=== PATIENT | male | born 1965 | race African-American/Black ===

== ENCOUNTER 2017-02-18 09:09 | Day surgery (SDC) | payer SELFPAY ==
[2017-02-18 10:15] LABS: PROTHROMBIN TIME 12.8 SEC (11.4-15.4)
[2017-02-18 10:16] LABS: PARTIAL THROMBOPLASTIN TIME 28.2 SEC (23.5-35.8)
[2017-02-18 10:20] LABS: HEMATOCRIT 38.4 % (37.9-51.0); HEMOGLOBIN 12.8 g/dL (13.5-17.0); MEAN CORPUSCULAR HEMOGLOBIN 26.8 pg (27.0-33.4); MEAN CORPUSCULAR HGB CONC 33.2 g/dL (32.0-36.0); MEAN CORPUSCULAR VOLUME 81 fl (80-97); RED BLOOD COUNT 4.77 10^6/uL (4.35-5.55); RED CELL DISTRIBUTION WIDTH 15.6 % (11.5-14.0); WHITE BLOOD COUNT 10.6 10^3/uL (4.0-10.5)
[2017-02-18 10:29] LABS: BLOOD UREA NITROGEN 15 mg/dL (7-20)
[2017-02-18] MEDS ORDERED: MIDAZOLAM 2 MG/2 ML INJ ONE (11:10)
[2017-02-18] MEDS ORDERED: FENTANYL CITRATE INJ/PF 100 MCG/2 ML AMPUL ONE (11:11)
--- NOTE | 2017-02-18 13:52 | RADIOLOGY REPORT (SQ) ---
EXAM DESCRIPTION: CT NEEDLE PLACEMENT; CT BIOPSY LIVER COMPLETED DATE/TIME: 02/18/2017 11:44 am; 02/18/2017 11:45 am REASON FOR STUDY: OTHER SPECIFIED DISEASE OF LIVER, LIVER BX; OTHER SPECIFIED DISEASE OF LIVER R93.3 ABNORMAL FINDINGS ON DX IMAGING OF PRT DIGESTIVE TRACT K76.89 OTHER SPECIFIED DISEASES OF LIVER COMPARISON: CT abdomen pelvis 01/30/2017 TECHNIQUE: CT guided right lobe liver biopsy with CT fluoroscopy and conscious sedation. RADIATION DOSE: 40 mGy. LIMITATIONS: None. FINDINGS: Procedure was discussed with the patient and the patient agreed to the procedure. CT scan gino was performed to localize the approach to the right lobe liver mass for biopsy. IV sedation was administered and physician direction by the registered nurse using 1 milligrams of Ve rsed and 25 micrograms of fentanyl. Physiologic monitoring was provided before, during, and after sed ation. The total sedation time was 30 minutes. Documentation face to face time, the performing proceduralist, spent monitoring the patient: 10minute s. After sterile skin prep and local lidocaine for skin and deep tissue anesthesia, a coaxial 18 gauge n eedle system was used to obtain 4 cores of liver tissue from the large right lobe liver mass, which w ere submitted to the lab in formalin. The biopsy tract was embolized with a Gelfoam plug. No immedi ate complications. Pathology is pending at the time of dictation. All CT scanners at this facility use dose modulation, iterative reconstruction, and/or weight based d osing when appropriate to reduce radiation dose to as low as reasonably achievable (ALARA). [facility]: Dose Right [facility]: CareDose [facility]: Dose Right [facility]: Teradose 4D [facility]: [employer] IMPRESSION: CT GUIDED LIVER BIOPSY. PATHOLOGY PENDING COMMENT: Patient medication list reviewed:Yes- Quality ID# [id number]:Eligible professional attests to docu menting in the medical record they obtained, updated, or reviewed the patient's current medications.. Quality ID [id number]: Final reports for procedures using fluoroscopy that document radiation exposure tanvir isabelle, or exposure time and number of fluorographic images (if radiation exposure indices are not avail able) TECHNICAL DOCUMENTATION: JOB ID: [id number] Quality ID # [id number]: Final reports with documentation of one or more dose reduction techniques (e.g., Au tomated exposure control, adjustment of the mA and/or kV according to patient size, use of iterative reconstruction technique) 2010 [employer]- All Rights Reserved
--- NOTE | 2017-02-18 13:52 | RADIOLOGY REPORT (SQ) ---
EXAM DESCRIPTION: CT NEEDLE PLACEMENT; CT BIOPSY LIVER COMPLETED DATE/TIME: 02/18/2017 11:44 am; 02/18/2017 11:45 am REASON FOR STUDY: OTHER SPECIFIED DISEASE OF LIVER, LIVER BX; OTHER SPECIFIED DISEASE OF LIVER R93.3 ABNORMAL FINDINGS ON DX IMAGING OF PRT DIGESTIVE TRACT K76.89 OTHER SPECIFIED DISEASES OF LIVER COMPARISON: CT abdomen pelvis 01/30/2017 TECHNIQUE: CT guided right lobe liver biopsy with CT fluoroscopy and conscious sedation. RADIATION DOSE: 40 mGy. LIMITATIONS: None. FINDINGS: Procedure was discussed with the patient and the patient agreed to the procedure. CT scan gino was performed to localize the approach to the right lobe liver mass for biopsy. IV sedation was administered and physician direction by the registered nurse using 1 milligrams of Ve rsed and 25 micrograms of fentanyl. Physiologic monitoring was provided before, during, and after sed ation. The total sedation time was 30 minutes. Documentation face to face time, the performing proceduralist, spent monitoring the patient: 10minute s. After sterile skin prep and local lidocaine for skin and deep tissue anesthesia, a coaxial 18 gauge n eedle system was used to obtain 4 cores of liver tissue from the large right lobe liver mass, which w ere submitted to the lab in formalin. The biopsy tract was embolized with a Gelfoam plug. No immedi ate complications. Pathology is pending at the time of dictation. All CT scanners at this facility use dose modulation, iterative reconstruction, and/or weight based d osing when appropriate to reduce radiation dose to as low as reasonably achievable (ALARA). [facility]: Dose Right [facility]: CareDose [facility]: Dose Right [facility]: Teradose 4D [facility]: [employer] IMPRESSION: CT GUIDED LIVER BIOPSY. PATHOLOGY PENDING COMMENT: Patient medication list reviewed:Yes- Quality ID# [id number]:Eligible professional attests to docu menting in the medical record they obtained, updated, or reviewed the patient's current medications.. Quality ID 145: Final reports for procedures using fluoroscopy that document radiation exposure tanvir isabelle, or exposure time and number of fluorographic images (if radiation exposure indices are not avail able) TECHNICAL DOCUMENTATION: JOB ID: [id number] Quality ID # [id number]: Final reports with documentation of one or more dose reduction techniques (e.g., Au tomated exposure control, adjustment of the mA and/or kV according to patient size, use of iterative reconstruction technique) 2010 [employer]- All Rights Reserved
[2017-02-18 14:22] VITALS: BP 119/78
== END 2017-02-18 14:20 | disposition home or self-care (01) ==
LOC: RAD 09:09
PROVIDERS: ATTEND Internal Medicine Hematology & Oncology
PROC: 0FB13ZX Excision of Right Lobe Liver, Percutaneous Approach, Diagnostic (ICD-10-PCS; principal; 2017-02-18)
DX: C78.7 Secondary malignant neoplasm of liver and intrahepatic bile duct (principal); R93.3 Abnormal findings on diagnostic imaging of other parts of digestive tract; K76.89 Other specified diseases of liver; Z85.9 Personal history of malignant neoplasm, unspecified
CPT/HCPCS: 36415; 84520; 82565; 85027; 85610; 85730; 88342 ×2; 88341 ×2; 88305 ×2; 77012; 47000; J2250; J3010

== ENCOUNTER 2017-02-28 13:42 | Emergency (ER) | payer SELFPAY ==
[2017-02-28] MEDS ORDERED: NORMAL SALINE 500 ML IV ONE (15:45)
[2017-02-28] MEDS ORDERED: HYDROMORPHONE HCL INJ/PF 2 MG/ML AMPULE IV ONE (15:46)
[2017-02-28] MEDS ORDERED: ONDANSETRON HCL INJ/PF 4 MG/2 ML SDV IV ONE (15:46)
--- NOTE | 2017-02-28 15:50 | ER Document Report ---
ED General - General Chief Complaint: Abdominal Pain Stated Complaint: ABDOMINAL PAIN Time Seen by Provider: 02/28/17 15:31 Mode of Arrival: Ambulatory Information source: Patient, Relative Notes: Patient is a 51-year-old black male comes emergency room with his spouse stating that they have been sent here by Dr. Robbins of hematology oncology. Patient was recently diagnosed with liver cancer or metastatic disease to the liver. He has been having abdominal pain discomfort and Dr. Robbins placed him on OxyContin 15 mg and patient took 1 dose and felt good that night in the morning he woke up and vomited up anything he is trying to eat or drink. She was afraid the patient may have encountered a bowel obstruction. Patient states that he has had a normal bowel movement in the last 24 hours last one was approximately 45 minutes prior to arrival. Most of his pain seems to do well in the left upper quadrant area. TRAVEL OUTSIDE OF THE [place] IN LAST 30 DAYS: No - HPI Patient complains to provider of: Abdominal pain with vomiting Onset: Other - Worse over the past 2 days. Onset/Duration: Gradual, Persistent Quality of pain: Achy, Cramping Severity: Moderate Pain Level: 3 Associated symptoms: Diarrhea, Nausea, Vomiting Exacerbated by: Food Relieved by: Denies Similar symptoms previously: Yes Recently seen / treated by doctor: Yes - Related Data Allergies/Adverse Reactions: grass pollen Allergy (Verified 02/28/17 13:46) Past Medical History - General Information source: Patient, Relative - Social History Smoking Status: Never Smoker Cigarette use (# per day): No Chew tobacco use (# tins/day): No Frequency of alcohol use: None Drug Abuse: None Lives with: Family, Spouse/Significant other Family History: Reviewed & Not Pertinent Patient has suicidal ideation: No Patient has homicidal ideation: No - Past Medical History Cardiac Medical History: Denies: Hx Coronary Artery Disease, Hx Heart Attack, Hx Hypertension Pulmonary Medical History: Denies: Hx Asthma, Hx Bronchitis, Hx COPD, Hx Pneumonia Neurological Medical History: Denies: Hx Cerebrovascular Accident, Hx Seizures Renal/ Medical History: Denies: Hx Peritoneal Dialysis Musculoskeltal Medical History: Denies Hx Arthritis - Immunizations Hx Diphtheria, Pertussis, Tetanus Vaccination: No - Patient denies Review of Systems - Review of Systems Constitutional: No symptoms reported EENT: No symptoms reported Cardiovascular: No symptoms reported Respiratory: No symptoms reported Gastrointestinal: No symptoms reported, Abdomen distended, Abdominal pain, Diarrhea, Nausea, Vomiting Genitourinary: No symptoms reported Male Genitourinary: No symptoms reported Musculoskeletal: No symptoms reported Skin: No symptoms reported Hematologic/Lymphatic: No symptoms reported Neurological/Psychological: No symptoms reported -: Yes All other systems reviewed and negative Physical Exam - Vital signs Vitals: Temp Pulse Resp BP Pulse Ox 98.3 F 92 16 117/77 97 02/28/17 13:48 02/28/17 13:48 02/28/17 13:48 02/28/17 13:48 02/28/17 13:48 Interpretation: Normal - General General appearance: Alert, Other - Obvious discomfort. In distress: Moderate - HEENT Head: Normocephalic, Atraumatic Mouth/Lips: Normal Mucous membranes: Dry Pharynx: Normal - Respiratory Respiratory status: No respiratory distress Chest status: Nontender Breath sounds: Decreased air movement. No: Normal, Nonproductive cough, Productive cough, Rales, Rhonchi, Stridor, Wheezing, Other Chest palpation: Normal - Cardiovascular Rhythm: Regular Heart sounds: Normal auscultation Murmur: No - Abdominal Distension: Distended Bowel sounds: Hypoactive Tenderness: Tender. No: Nontender, McBurney's point, Ware's sign, Guarding, Rebound, Other Organomegaly: No organomegaly, Hepatomegaly, Splenomegaly - Neurological Neuro grossly intact: Yes Cognition: Normal Orientation: AAOx4, Disoriented to events Chidi Coma Scale Eye Opening: Spontaneous Chidi Coma Scale Verbal: Oriented Chidi Coma Scale Motor: Obeys Commands Chidi Coma Scale Total: 15 Speech: Normal Course - Vital Signs Vital signs: Temp Pulse Resp BP Pulse Ox 98.3 F 92 16 117/77 97 02/28/17 13:48 02/28/17 13:48 02/28/17 13:48 02/28/17 13:48 02/28/17 13:48 - Laboratory Result Diagrams: 02/28/17 16:00 02/28/17 16:00 Laboratory results interpreted by me: 02/28/17 02/28/17 16:00 16:00 WBC 12.2 H Hgb 12.8 L MCH 26.6 L RDW 15.5 H Absolute Neutrophils 8.6 H Sodium 135.7 L Chloride 96 L Glucose 71 L Total Bilirubin 1.9 H Direct Bilirubin 1.3 H AST 118 H ALT 108 H Alkaline Phosphatase 456 H - Diagnostic Test Radiology reviewed: Reports reviewed - CT of the abdomen and pelvis with contrast IV only shows a impression of liver is enlarged and permeated with multiple large metastatic lesions likely secondary to a 6 cm mass in the colon at the splenic flexure. There does not appear to be significant evidence of a bowel obstruction. - Transfer of Care Notes: 02/28/17 19:21 I have discussed the case with at this present time she wants me to go ahead and send patient home place him on Dilaudid 2 mg p.o. 3 times daily as needed for pain along with some promethazine and put him on Senokot. I have also suggested the patient to take MiraLAX. I explained to him how bad constipation can be and that he needs to be very alert as to his bowel movements. He is to contact Dr. Robbins"s office Friday for further intervention. Patient is also been informed that if anything changes over the weekend if he should become obstructed or should he have increasing amount of pain or discomfort he is to return to ER for a recheck. Discharge - Discharge Clinical Impression: Abdominal pain Qualifiers: Abdominal location: left upper quadrant Qualified Code(s): R10.12 - Left upper quadrant pain Colon cancer Qualifiers: Colon location: unspecified part of colon Qualified Code(s): C18.9 - Malignant neoplasm of colon, unspecified Condition: Good Disposition: HOME, SELF-CARE Instructions: Abdominal Pain ([facility]), Oral Narcotic Medication ([facility]), Evaluation of Upper Abdominal Pain ([facility]) Additional Instructions: As we have discussed home and rest. Let us try the medication that we have also talked about his call Dilaudid. Dr. Robbins would like us to try this along with some Phenergan and she also wants you to start a Senokot bowel prep. You can get this [id number]. Follow directions on it as well. Also highly suggested using MiraLAX I again 75 mg once a day with fluids. You can get this [id number] as well. As we have discussed if pain increases you are unable to keep fluids down or you have any concerns return to ER over the weekend. Follow-up with Dr. Robbins office on Friday contact them for further instructions. Prescriptions: Hydromorphone HCl [Dilaudid 2 mg Tablet] 2 mg PO Q4HP PRN #30 tablet PRN Reason: Promethazine HCl [Phenergan 25 mg Tablet] 25 mg PO Q4HP PRN #20 tablet PRN Reason:
[2017-02-28 16:17] LABS: ABSOLUTE BASOPHILS # (AUTO) 0.1 10^3/uL (0.0-0.2); ABSOLUTE EOSINOPHILS # (AUTO) 0.2 10^3/uL (0.0-0.6); ABSOLUTE MONOCYTES (AUTO) 1.4 10^3/uL (0.1-1.4); ABSOLUTE NEUT (AUTO) 8.6 10^3/uL (1.7-8.2); BASOPHILS % (AUTO) 0.7 % (0-2); EOSINOPHILS % (AUTO) 1.6 % (0-6); HEMOGLOBIN 12.8 g/dL (13.5-17.0); HGB HCT DIFFERENCE -0.6; LYMPHOCYTES % (AUTO) 16.1 % (13-45); MEAN CORPUSCULAR HEMOGLOBIN 26.6 pg (27.0-33.4); MEAN CORPUSCULAR HGB CONC 32.9 g/dL (32.0-36.0); MEAN CORPUSCULAR VOLUME 81 fl (80-97); MONOCYTES % (AUTO) 11.3 % (3-13); RED BLOOD COUNT 4.82 10^6/uL (4.35-5.55); RED CELL DISTRIBUTION WIDTH 15.5 % (11.5-14.0); SEGMENTED NEUTROPHILS % (AUTO) 70.3 % (42-78); WHITE BLOOD COUNT 12.2 10^3/uL (4.0-10.5)
[2017-02-28 16:32] LABS: ALANINE AMINOTRANSFERASE 108 U/L (21-72); ALBUMIN 3.6 g/dL (3.5-5.0); ALKALINE PHOSPHATASE 456 U/L (38-126); ANION GAP 17 (5-19); ASPARTATE AMINO TRANSFERASE 118 U/L (17-59); BILIRUBIN,DIRECT 1.3 mg/dL (0.0-0.4); BILIRUBIN,TOTAL 1.9 mg/dL (0.2-1.3); BLOOD UREA NITROGEN 12 mg/dL (7-20); CALCIUM 9.5 mg/dL (8.4-10.2); CARBON DIOXIDE 23 mmol/L (22-30); CHLORIDE 96 mmol/L (98-107); CREATININE RESULT 0.53 mg/dL (0.52-1.25); GLUCOSE 71 mg/dL (75-110); LIPASE 51.8 U/L (23-300); POTASSIUM 4.4 mmol/L (3.6-5.0); SODIUM 135.7 mmol/L (137-145); TOTAL PROTEIN 6.9 g/dL (6.3-8.2)
--- NOTE | 2017-02-28 18:25 | RADIOLOGY REPORT (SQ) ---
EXAM DESCRIPTION: CT ABD/PELVIS WITH IV ONLY COMPLETED DATE/TIME: 02/28/2017 6:07 pm REASON FOR STUDY: ? obstruction COMPARISON: 01/30/2017 TECHNIQUE: CT scan of the abdomen and pelvis performed using helical scanning technique with dynamic intravenous contrast injection. No oral contrast. Images reviewed with lung, soft tissue, and bone windows. Reconstructed coronal and sagittal MPR images reviewed. Delayed images for evaluation of the urinary system also acquired. All images stored on PACS. All CT scanners at this facility use dose modulation, iterative reconstruction, and/or weight based d osing when appropriate to reduce radiation dose to as low as reasonably achievable (ALARA). [facility]: Dose Right [facility]: CareDose [facility]: Dose Right [facility]: Teradose 4D [facility]: PressBaby CONTRAST TYPE AND DOSE: 100 cc Isovue 370- low osmolar. RENAL FUNCTION: Creatinine 0.5 BUN 12 RADIATION DOSE: Total exam DLP 1338 mGy cm. LIMITATIONS: None. FINDINGS: LOWER CHEST: No significant findings. No nodules or infiltrates. LIVER: Multiple large hepatic masses are once again seen consistent with extensive metastatic disease . SPLEEN: Normal size. No focal lesions. PANCREAS: No masses. No significant calcifications. No adjacent inflammation or peripancreatic fluid collections. Pancreatic duct not dilated. GALLBLADDER: No identified stones by CT criteria. No inflammatory changes to suggest cholecystitis. ADRENAL GLANDS: No significant masses or asymmetry. RIGHT KIDNEY AND URETER: No solid masses. No significant calcifications. No hydronephrosis or hyd roureter. LEFT KIDNEY AND URETER: No solid masses. No significant calcifications. No hydronephrosis or hydr oureter. AORTA AND VESSELS: No aneurysm. No dissection. Renal arteries, SMA, celiac without stenosis. RETROPERITONEUM: No retroperitoneal adenopathy, hemorrhage or masses. BOWEL AND PERITONEAL CAVITY: Once again there a 6 cm mass near the splenic flexure with slight mesent roe nodularity. No obstruction is appreciated. APPENDIX: Normal. PELVIS: No mass. No free fluid. Normal bladder. ABDOMINAL WALL: No masses. No hernias. BONES: No significant or acute findings. OTHER: No other significant finding. IMPRESSION: The liver is enlarged and permeated with multiple large metastatic lesions, likely secon cortez to a 6 cm mass in the colon at the splenic flexure. There does not appear to be significant rosalie dence of bowel obstruction. TECHNICAL DOCUMENTATION: JOB ID: [id number] Quality ID # [id number]: Final reports with documentation of one or more dose reduction techniques (e.g., Au tomated exposure control, adjustment of the mA and/or kV according to patient size, use of iterative reconstruction technique) 2010 [employer]- All Rights Reserved
[2017-02-28 19:51] VITALS: BP 117/71
== END 2017-02-28 19:48 | disposition home or self-care (01) ==
LOC: ER 13:42
DX: C22.8 Malignant neoplasm of liver, primary, unspecified as to type (principal); R10.12 Left upper quadrant pain
CPT/HCPCS: 99284; 96361; 96374; 96375; 36415; 83690; 85025; 80053; 74177; J1170; J2405; J7040

== ENCOUNTER 2017-03-07 15:06 | Emergency (ER) | payer SELFPAY ==
--- NOTE | 2017-03-07 16:08 | ER Document Report ---
ED Medical Screen (RME) - General Chief Complaint: Ankle Swelling Stated Complaint: FOOT PAIN Time Seen by Provider: 03/07/17 15:57 Notes: 51-year-old male past medical history recently diagnosed colon cancer here with complaints of bilateral leg swelling ongoing for the past few days. He states he has had this once before approximately 9 months ago but it resolved on its own without the use of any medications. He has not had any chest pain or shortness of breath. He has been urinating per usual without changes. He has no prior history of DVT. He is supposed to start his chemotherapy in the near future. EXAM Bilateral lower extremity pitting edema 2+ to the level of mid shins No rales on pulmonary exam TRAVEL OUTSIDE OF THE [place] IN LAST 30 DAYS: No - Related Data Allergies/Adverse Reactions: grass pollen Allergy (Verified 03/07/17 15:08) Past Medical History - Social History Chew tobacco use (# tins/day): No Frequency of alcohol use: None Drug Abuse: None - Past Medical History Cardiac Medical History: Denies: Hx Coronary Artery Disease, Hx Heart Attack, Hx Hypertension Pulmonary Medical History: Denies: Hx Asthma, Hx Bronchitis, Hx COPD, Hx Pneumonia Neurological Medical History: Denies: Hx Cerebrovascular Accident, Hx Seizures Renal/ Medical History: Denies: Hx Peritoneal Dialysis Musculoskeltal Medical History: Denies Hx Arthritis - Immunizations Hx Diphtheria, Pertussis, Tetanus Vaccination: No - Patient denies History of Influenza Vaccine for 12/2016 - 05/2017 Season: No Physical Exam - Vital signs Vitals: Temp Pulse Resp BP Pulse Ox 98.5 F 94 16 118/81 97 03/07/17 15:27 03/07/17 15:27 03/07/17 15:27 03/07/17 15:27 03/07/17 15:27 Course - Vital Signs Vital signs: Temp Pulse Resp BP Pulse Ox 98.5 F 94 16 118/81 97 03/07/17 15:27 03/07/17 15:27 03/07/17 15:27 03/07/17 15:27 03/07/17 15:27
--- NOTE | 2017-03-07 17:38 | RADIOLOGY REPORT (SQ) ---
EXAM DESCRIPTION: VENOUS BILATERAL LOWER COMPLETED DATE/TIME: 03/07/2017 5:29 pm REASON FOR STUDY: r/o DVT for b/l leg swelling COMPARISON: None. TECHNIQUE: Dynamic and static shah scale and color images acquired of both lower extremity venous sy stems. Selected spectral images acquired with additional compression and augmentation maneuvers. Imag es stored on PACS. LIMITATIONS: None. FINDINGS: RIGHT LEG COMMON FEMORAL AND FEMORAL: Normal phasicity, compression and augmentation. No visualized echogenic m aterial on shah scale. No defects on color images. POPLITEAL: Normal compression and augmentation. No visualized echogenic material on shah scale. No de fects on color images. CALF VESSELS: Normal compression and augmentation. No visualized echogenic material on shah scale. No defects on color image. GSV AND SSV: Normal compression. No visualized echogenic material on shah scale. No defects on color images. ANY DEEP VENOUS INSUFFICIENCY: Not evaluated. ANY EVIDENCE OF POPLITEAL CYST: No. OTHER: No other significant finding. LEFT LEG COMMON FEMORAL AND FEMORAL: Normal phasicity, compression and augmentation. No visualized echogenic m aterial on shah scale. No defects on color images. POPLITEAL: Normal compression and augmentation. No visualized echogenic material on shah scale. No de fects on color images. CALF VESSELS: Normal compression and augmentation. No visualized echogenic material on shah scale. No defects on color images. GSV AND SSV: Normal compression. No visualized echogenic material on shah scale. No defects on color images. ANY DEEP VENOUS INSUFFICIENCY: Not evaluated. ANY EVIDENCE POPLITEAL CYST: No. OTHER: No other significant finding. IMPRESSION: NO EVIDENCE DVT OR SVT IN EITHER LEG. TECHNICAL DOCUMENTATION: JOB ID: [id number] [employer]- All Rights Reserved
[2017-03-07 18:35] LABS: ABSOLUTE BASOPHILS # (AUTO) 0.1 10^3/uL (0.0-0.2); ABSOLUTE EOSINOPHILS # (AUTO) 0.4 10^3/uL (0.0-0.6); ABSOLUTE MONOCYTES (AUTO) 1.3 10^3/uL (0.1-1.4); ABSOLUTE NEUT (AUTO) 8.7 10^3/uL (1.7-8.2); BASOPHILS % (AUTO) 1.1 % (0-2); EOSINOPHILS % (AUTO) 2.8 % (0-6); HEMATOCRIT 36.7 % (37.9-51.0); HEMOGLOBIN 12.1 g/dL (13.5-17.0); HGB HCT DIFFERENCE -0.4; MEAN CORPUSCULAR HEMOGLOBIN 26.9 pg (27.0-33.4); MEAN CORPUSCULAR HGB CONC 33.1 g/dL (32.0-36.0); MEAN CORPUSCULAR VOLUME 81 fl (80-97); MONOCYTES % (AUTO) 10.2 % (3-13); RED BLOOD COUNT 4.51 10^6/uL (4.35-5.55); RED CELL DISTRIBUTION WIDTH 15.8 % (11.5-14.0); SEGMENTED NEUTROPHILS % (AUTO) 69.9 % (42-78); WHITE BLOOD COUNT 12.4 10^3/uL (4.0-10.5)
[2017-03-07 18:57] LABS: ANION GAP 19 (5-19); BLOOD UREA NITROGEN 11 mg/dL (7-20); CALCIUM 9.3 mg/dL (8.4-10.2); CARBON DIOXIDE 21 mmol/L (22-30); CHLORIDE 99 mmol/L (98-107); CREATININE RESULT 0.61 mg/dL (0.52-1.25); GLUCOSE 80 mg/dL (75-110); POTASSIUM 4.2 mmol/L (3.6-5.0); SODIUM 138.6 mmol/L (137-145)
--- NOTE | 2017-03-07 20:46 | ER Document Report ---
ED General - General Chief Complaint: Ankle Swelling Stated Complaint: FOOT PAIN Time Seen by Provider: 03/07/17 15:57 Mode of Arrival: Ambulatory Information source: Patient Notes: This is a 51-year-old man with recently diagnosed metastatic colon cancer comes in with lower extremity swelling. He denies chest pain or shortness of breath. TRAVEL OUTSIDE OF THE [place] IN LAST 30 DAYS: No - HPI Onset: Last week Onset/Duration: Gradual Quality of pain: No pain Severity: None Pain Level: Denies Associated symptoms: denies: Chest pain, Fever, Shortness of breath Exacerbated by: Denies Relieved by: Denies Similar symptoms previously: No Recently seen / treated by doctor: Yes - Related Data Allergies/Adverse Reactions: grass pollen Allergy (Verified 03/07/17 15:08) Home Medications: Current Home Medications Hydromorphone HCl [Hydromorphone HCl] 2 mg PO Q4H PRN 03/07/17 [History] Promethazine HCl 25 mg PO Q4H PRN 03/07/17 [History] Past Medical History - General Information source: Patient - Social History Smoking Status: Never Smoker Cigarette use (# per day): No Chew tobacco use (# tins/day): No Frequency of alcohol use: None Drug Abuse: None Lives with: Spouse/Significant other Family History: Reviewed & Not Pertinent Patient has suicidal ideation: No Patient has homicidal ideation: No - Past Medical History Cardiac Medical History: Denies: Hx Coronary Artery Disease, Hx Heart Attack, Hx Hypertension Pulmonary Medical History: Denies: Hx Asthma, Hx Bronchitis, Hx COPD, Hx Pneumonia Neurological Medical History: Denies: Hx Cerebrovascular Accident, Hx Seizures Renal/ Medical History: Denies: Hx Peritoneal Dialysis Malignancy Medical History: Reports Other - Recently diagnosed colon cancer with metastases to the liver GI Medical History: Reports: Other - See above Musculoskeltal Medical History: Denies Hx Arthritis Psychiatric Medical History: Reports: None Traumatic Medical History: Reports: None Infectious Medical History: Reports: None Past Surgical History: Reports: Other - Liver biopsy recent - Immunizations Hx Diphtheria, Pertussis, Tetanus Vaccination: No - Patient denies Review of Systems - Review of Systems Constitutional: denies: Chills, Fever EENT: No symptoms reported Cardiovascular: No symptoms reported. denies: Chest pain, Palpitations, Orthopnea, Syncope Respiratory: No symptoms reported Gastrointestinal: No symptoms reported Genitourinary: No symptoms reported Male Genitourinary: No symptoms reported Musculoskeletal: No symptoms reported Skin: No symptoms reported Hematologic/Lymphatic: No symptoms reported Neurological/Psychological: No symptoms reported Physical Exam - Vital signs Vitals: Temp Pulse Resp BP Pulse Ox 98.5 F 94 16 118/81 97 03/07/17 15:27 03/07/17 15:27 03/07/17 15:27 03/07/17 15:27 03/07/17 15:27 Notes: Physical exam: GENERAL: 51-year-old man, alert and oriented 3, no acute distress. HEAD: Atraumatic, normocephalic. EYES: Pupils equal round and reactive to light, extraocular movements intact, sclera anicteric, conjunctiva are normal. ENT: TMs normal, nares patent, oropharynx clear without exudates. Moist mucous membranes. NECK: Normal range of motion, supple without obvious mass or JVD. LUNGS: Breath sounds clear to auscultation bilaterally and equal. No wheezes rales or rhonchi. HEART: Regular rate and rhythm without murmurs, rubs or gallops. ABDOMEN: Soft, normoactive bowel sounds. No tenderness to palpation. No guarding, no rebound. No masses appreciated. EXTREMITIES: Patient does have normal range of motion with 2+ lower extremity edema bilaterally. It is symmetric. Good distal pulses. No erythema or skin changes. NEUROLOGICAL: Cranial nerves II through XII grossly intact. Normal speech, moving all extremities. Patient is up and moving around. PSYCH: Normal mood, normal affect. SKIN: Warm, Dry, normal turgor, no rashes or lesions noted. Course - Re-evaluation Re-evalutation: 03/07/17 20:[address] from yesterday. I have discussed the case with Dr. Farley. While it is possible that the etiology of the edema is from venous stasis because of the colon cancer, I think it is reasonable to try one weeks worth of Lasix. I do not detect any overt signs of failure in this patient. His lung sounds are clear. His oxygenation is good. His heart is regular without murmurs or gallops. He does not have any JVD. - Vital Signs Vital signs: Temp Pulse Resp BP Pulse Ox 98.5 F 94 16 118/81 97 03/07/17 15:27 03/07/17 15:27 03/07/17 15:27 03/07/17 15:27 03/07/17 15:27 - Laboratory Result Diagrams: 03/07/17 18:14 03/07/17 18:14 Laboratory results interpreted by me: 03/07/17 03/07/17 18:14 18:14 WBC 12.4 H Hgb 12.1 L Hct 36.7 L MCH 26.9 L RDW 15.8 H Absolute Neutrophils 8.7 H Carbon Dioxide 21 L - Diagnostic Test Radiology reviewed: Image reviewed, Reports reviewed - Bilateral lower extremity Dopplers negative for DVT. Discharge - Discharge Clinical Impression: Edema of the lower extremities Condition: Stable Disposition: HOME, SELF-CARE Additional Instructions: Thank you for choosing [facility] for your care. The examination and treatment you have received in the Emergency Department today has been rendered on an emergency basis only and is not intended to be a substitute for complete medical care. You should contact your follow-up physician as it is important that he or she examine you for any new or remaining problems. If given a copy of any lab tests or radiology reports, please bring them with you when you see your physician. If your problem worsens or new symptoms appear and you are unable to arrange prompt follow-up care, return to the Emergency Department. Specific signs to look out for: Worsening swelling, pain, any concerns or getting worse. Any other instructions: Take the Lasix in the morning as planned. I did give some potassium supplementation for the next week. Follow-up with Dr. Robbins next week. Prescriptions: Furosemide [Lasix 20 mg Tablet] 20 mg PO QAM #30 tablet Potassium Bicarbonate/Cit AC [Potassium 25 Meq Tab Eff] 25 meq PO DAILY #7 tablet.eff Referrals: BELINDA ROBBINS MD [ACTIVE STAFF] - 03/10/17
[2017-03-07 23:41] VITALS: BP 126/76
== END 2017-03-07 20:55 | disposition home or self-care (01) ==
LOC: ER 15:06
DX: R60.0 Localized edema (principal); C18.9 Malignant neoplasm of colon, unspecified; C78.7 Secondary malignant neoplasm of liver and intrahepatic bile duct
CPT/HCPCS: 36415; 80048; 85025; 93970; 99284

== ENCOUNTER 2017-03-10 09:57 | Day surgery (SDC) | payer SELFPAY ==
[~2017-03-10 09:57] MED LIST: CEFAZOLIN 1 GM/D5W RTU 1 GM/50 ML RTUPB IV PRN; DEXTROSE 5%-1/2 NORMAL SALINE 1,000 ML IV PRN; DIAZEPAM 5 MG TABLET PO PRN; OXYCODONE-ACETAMINOPHEN 5-325 MG TABLET PO PRN
[2017-03-10 10:41] LABS: HEMATOCRIT 37.6 % (37.9-51.0); HEMOGLOBIN 12.4 g/dL (13.5-17.0); HGB HCT DIFFERENCE -0.4; MEAN CORPUSCULAR HEMOGLOBIN 26.6 pg (27.0-33.4); MEAN CORPUSCULAR HGB CONC 33.1 g/dL (32.0-36.0); MEAN CORPUSCULAR VOLUME 81 fl (80-97); RED BLOOD COUNT 4.66 10^6/uL (4.35-5.55); RED CELL DISTRIBUTION WIDTH 15.9 % (11.5-14.0); WHITE BLOOD COUNT 12.5 10^3/uL (4.0-10.5)
[2017-03-10 11:09] LABS: ANION GAP 19 (5-19); BLOOD UREA NITROGEN 14 mg/dL (7-20); CALCIUM 9.7 mg/dL (8.4-10.2); CARBON DIOXIDE 23 mmol/L (22-30); CHLORIDE 96 mmol/L (98-107); CREATININE RESULT 0.54 mg/dL (0.52-1.25); GLUCOSE 90 mg/dL (75-110); POTASSIUM 4.6 mmol/L (3.6-5.0); SODIUM 137.8 mmol/L (137-145)
--- NOTE | 2017-03-10 11:24 | RADIOLOGY REPORT (SQ) ---
EXAM DESCRIPTION: CHEST SINGLE VIEW COMPLETED DATE/TIME: 03/10/2017 10:53 am REASON FOR STUDY: PREOP COMPARISON: CT abdomen pelvis 01/30/2017 EXAM PARAMETERS: NUMBER OF VIEWS: One view. TECHNIQUE: Single frontal radiographic view of the chest acquired. RADIATION DOSE: NA LIMITATIONS: None. FINDINGS: LUNGS AND PLEURA: No opacities, masses or pneumothorax. No pleural effusion. MEDIASTINUM AND HILAR STRUCTURES: No masses. Contour normal. HEART AND VASCULAR STRUCTURES: Heart normal in size. Normal vasculature. BONES: No acute findings. HARDWARE: None in the chest. OTHER: Elevated right hemidiaphragm from enlarged liver IMPRESSION: NO ACUTE RADIOGRAPHIC FINDING IN THE CHEST. TECHNICAL DOCUMENTATION: JOB ID: [id number] [employer]- All Rights Reserved
[2017-03-10] MEDS ORDERED: MIDAZOLAM 2 MG/2 ML INJ ONE (14:54)
[2017-03-10] MEDS ORDERED: CEFAZOLIN INJ 1 GM VIAL ONE (14:54)
[2017-03-10] MEDS ORDERED: LIDOCAINE 0.5% INJ-PF (5 MG/ML) 50 ML SDV ONE (14:54)
[2017-03-10] MEDS ORDERED: BACITRACIN INJ 50,000 UNIT VIAL ONE (14:55)
[2017-03-10] MEDS ORDERED: FENTANYL CITRATE INJ/PF 100 MCG/2 ML AMPUL ONE (14:55)
--- NOTE | 2017-03-10 16:13 | PDOC DISCHARGE SUMMARY ---
Discharge Summary (SDC) - Discharge Final Diagnosis: Metastatic liver cancer. Date of Surgery: 03/10/17 Discharge Date: 03/10/17 Condition: Poor Forms: ASU Anesthesia D/C Instruction, Discharge POC-Surgical Service Treatment or Instructions: Discharge home [after recovery per ASU criteria]. Diet , [renal],as tolerated, when fully awake advance as tolerated. Activities within moderation encouraged. Follow up in my office by appointment in about [1 week]. Call for appointment. Leave wounds [covered], [keep clean and dry, until office visit in 1 week]. Hold of on school/work [until evaluation in office]. Meds per med rec. May shower [in 48 hrs], [try to keep operated area as dry as possible]. Prescriptions: Oxycodone HCl/Acetaminophen [Percocet 5-325 mg Tablet] 1 tab PO ASDIR PRN #15 tab PRN Reason: Referrals: BRIJESH CRANDALL MD [ACTIVE STAFF] - 03/20/17 2:30 pm Discharge Diet: As Tolerated Respiratory Treatments at Home: Deep Breathing/Coughing Discharge Activity: Balance Activity w/Rest Home Care Assistance: None Needed Report the Following to Your Physician Immediately: Nausea, Vomiting, Increase in Pain, Fever over 101 Degrees, Unusual Bleeding, Redness, Swelling, Warmth, Drainage-Foul Smelling, IV Site Infection Signs
--- NOTE | 2017-03-10 16:16 | Operative Report ---
Operative Report DATE OF SURGERY: 03/10/17 PREOPERATIVE DIAGNOSIS: Metastatic liver cancer. POSTOPERATIVE DIAGNOSIS: Metastatic liver cancer. Post Port-A-Cath insertion. OPERATION: 1. Ultrasound evaluation of the right internal jugular vein. 2. Insertion of Port-A-Cath via real-time access in the right internal jugular vein. 3. Angiogram and interpretation. SURGEON: BRIJESH GRAY FREIGHT TEAM ASSOCIATE: none ANESTHESIA: Moderate Sedation TISSUE REMOVED OR ALTERED: Not applicable. COMPLICATIONS: None ESTIMATED BLOOD LOSS: 5 mL. INTRAOPERATIVE FINDINGS: Of a satisfactory right internal jugular vein, about 1.2 cm in diameter. Situated immediately beneath the sternocleidomastoid. Satisfactory real-time access in satisfactory position of the port. Tip of the catheter just down in the right atrium. Easy egress of blood and ingress of heparinized solution through the port. Angiogram demonstrated smooth flow of contrast through the catheter, right atrium and pulmonary outflow tract. PROCEDURE: After obtaining informed consent, the patient was taken to the [employer] and positioned supine. The [right] neck and chest were prepared with chlorhexidine and draped out with sterile linen. After the " universal timeout", in which it was verified that the patient continued to receive antibiotic, the procedure commenced. A steriley sheathed ultrasound probe was used to evaluate the [ right] internal jugular vein. Local anesthesia was infiltrated adjacent to the probe. Access into the [right] internal jugular vein was obtained using a micropuncture needle, followed by micropuncture wire and then a micropuncture catheter. This was followed by introduction of a 0.035 guidewire the tip of which was placed down into the inferior vena cava . The port sites was marked , locally anesthetized and incision made. Dissection now proceeded to the deep subcutaneous subcutaneous tissues so that a pocket for the port was made. Meticulous hemostasis was secured and the catheter was tunneled between the 2 incisions. Proximally, the catheter was now positioned using a peel-away sheath. Distally the catheter was tailored to an appropriate length and then mated to the port using the contained fixating device. The port was now placed in the pocket and the catheter optimally positioned. The port was accessed with a Saba needle and an angiogram done under digital subtraction. The findings as dictated. With adequate and satisfactory positioning, both lumens of the chamber were irrigated with heparinized solution. The wounds were now closed using interrupted 3-0 PDS to the subcutaneous tissues and a continuous subcuticular suture of 4-0 Monocryl to the skin. These are reinforced with Steri-Strips over benzoin and then dressings applied. Time: 1 0.5 minute. Dose: 5 m Gy Contrast: 5 mls. Isovue 300. Copies of the dictated operative report for Dr. Brijesh Bain MD.
[2017-03-10 16:36] VITALS: BP 128/80
--- NOTE | 2017-03-10 16:51 | RADIOLOGY REPORT (SQ) ---
EXAM DESCRIPTION: PORTACATH INSERTION; GUIDANCE FLUOROSCOPIC COMPLETED DATE/TIME: 03/10/2017 3:28 pm; 03/10/2017 3:26 pm REASON FOR STUDY: R93.3 ABNORMAL FINDING ON DX IMAGING; NEED FOR VASCULAR ACCESS R93.3 ABNORMAL FIN DINGS ON DX IMAGING OF PRT DIGESTIVE TRACT COMPARISON: Chest film 03/10/2017 FLUOROSCOPY TIME: 1.5 minutes 6 digital C-arm images saved to PACS. TECHNIQUE: Intra-operative images acquired during surgical procedure to evaluate progress. NUMBER OF IMAGES: 6 series of digital C-arm images LIMITATIONS: None. FINDINGS: Intra procedural imaging and fluoro during placement of a right-sided permanent central li ne with the tip in the superior vena cava IMPRESSION: Intra procedural imaging and fluoro COMMENT: Quality ID [id number]: Final reports for procedures using fluoroscopy that document radiation exp osure indices, or exposure time and number of fluorographic images (if radiation exposure indices are not available) Please consult full operative report of the attending physician for description of the procedure. TECHNICAL DOCUMENTATION: JOB ID: [id number] [employer] All Rights Reserved
--- NOTE | 2017-03-10 16:51 | RADIOLOGY REPORT (SQ) ---
EXAM DESCRIPTION: PORTACATH INSERTION; GUIDANCE FLUOROSCOPIC COMPLETED DATE/TIME: 03/10/2017 3:28 pm; 03/10/2017 3:26 pm REASON FOR STUDY: R93.3 ABNORMAL FINDING ON DX IMAGING; NEED FOR VASCULAR ACCESS R93.3 ABNORMAL FIN DINGS ON DX IMAGING OF PRT DIGESTIVE TRACT COMPARISON: Chest film 03/10/2017 FLUOROSCOPY TIME: 1.5 minutes 6 digital C-arm images saved to PACS. TECHNIQUE: Intra-operative images acquired during surgical procedure to evaluate progress. NUMBER OF IMAGES: 6 series of digital C-arm images LIMITATIONS: None. FINDINGS: Intra procedural imaging and fluoro during placement of a right-sided permanent central li ne with the tip in the superior vena cava IMPRESSION: Intra procedural imaging and fluoro COMMENT: Quality ID [id number]: Final reports for procedures using fluoroscopy that document radiation exp osure indices, or exposure time and number of fluorographic images (if radiation exposure indices are not available) Please consult full operative report of the attending physician for description of the procedure. TECHNICAL DOCUMENTATION: JOB ID: [id number] [employer]- All Rights Reserved
== END 2017-03-10 16:35 | disposition home or self-care (01) ==
LOC: CCL 09:57
PROVIDERS: ATTEND Surgery
PROC: 05HM33Z Insertion of Infusion Device into Right Internal Jugular Vein, Percutaneous Approach (ICD-10-PCS; principal; 2017-03-10)
DX: C78.7 Secondary malignant neoplasm of liver and intrahepatic bile duct (principal); C18.9 Malignant neoplasm of colon, unspecified; R93.3 Abnormal findings on diagnostic imaging of other parts of digestive tract
CPT/HCPCS: 36415; 85027; 80048; 36561; 76937; 77001; 71010; C1752; C1788; Q9967; J2250; J3490 ×2; J0690; J3010; J1644

== ENCOUNTER 2017-03-19 10:40 | Outpatient (CLI) | payer OTHER ==
[2017-03-19 11:50] VITALS: BP 133/80
[2017-03-19] MEDS ORDERED: DEXTROSE 5%-WATER 250 ML IV PRN (11:58)
[2017-03-19] MEDS ORDERED: ONDANSETRON HCL/PF 16 MG, DEXAMETHASONE SOD PHOSPHATE 10 MG in NORMAL SALINE 50 ML IV PRN (11:59)
[2017-03-19] MEDS ORDERED: OXALIPLATIN IV PRN (12:01)
[2017-03-19] MEDS ORDERED: WATER IV PRN ×2 (12:01→12:06)
[2017-03-19] MEDS ORDERED: DEXTROSE 5% IV PRN ×2 (12:01→12:06)
[2017-03-19] MEDS ORDERED: LEUCOVORIN CALCIUM IV PRN (12:06)
[2017-03-19] MEDS ORDERED: DISPOSABLE IV PRN (12:09)
[2017-03-19] MEDS ORDERED: FLUOROURACIL IV PRN ×2 (12:09→12:12)
[2017-03-19] MEDS ORDERED: CONTAINER EMPTY IV PRN (12:12)
== END 2017-03-19 16:29 | disposition home or self-care (01) ==
LOC: II 10:40 → 5TH 11:49 → II 16:29
PROVIDERS: ATTEND Internal Medicine Hematology & Oncology
PROC: 3E04305 Introduction of Other Antineoplastic into Central Vein, Percutaneous Approach (ICD-10-PCS; principal; 2017-03-19)
PROC: 3E043GC Introduction of Other Therapeutic Substance into Central Vein, Percutaneous Approach (ICD-10-PCS; 2017-03-19)
DX: Z51.11 Encounter for antineoplastic chemotherapy (principal); R93.3 Abnormal findings on diagnostic imaging of other parts of digestive tract
CPT/HCPCS: 96409; 96413; 96415; 96416; 96367; 96375; 96417; J0640; J3490 ×2; J9190; J2405; J7060; J1100; J9263; 96368; 96411

== ENCOUNTER 2017-03-24 17:42 | Inpatient (IN) | payer MEDICAID, OTHER ==
[2017-03-24] MEDS ORDERED: ONDANSETRON HCL INJ/PF 4 MG/2 ML SDV IV ONE (18:20)
--- NOTE | 2017-03-24 18:21 | ER Document Report ---
ED Medical Screen (RME) - General Chief Complaint: Vomiting Stated Complaint: VOMITING Time Seen by Provider: 03/24/17 18:16 Mode of Arrival: Wheelchair Information source: Patient, Relative Notes: 51-year-old male stage IV colon cancer with metastasis to the liver who had chemo on Friday by Dr. Mcbride presents with complaints of nausea vomiting and diarrhea. I have greeted and performed a rapid initial assessment of this patient. A comprehensive ED assessment and evaluation of the patient, analysis of test results and completion of the medical decision making process will be conducted by additional ED providers. PHYSICAL EXAMINATION: GENERAL: ill-appearing, poorly-nourished and in no acute distress. HEAD: Atraumatic, normocephalic. EYES: Pupils equal round extraocular movements intact, conjunctiva are normal. ENT: Nares patent NECK: Normal range of motion LUNGS: No respiratory distress Musculoskeletal: Normal range of motion NEUROLOGICAL: Normal speech, normal gait. PSYCH: Normal mood, normal affect. SKIN: Warm, Dry, normal turgor, no rashes or lesions noted. TRAVEL OUTSIDE OF THE [place] IN LAST 30 DAYS: No - Related Data Allergies/Adverse Reactions: grass pollen Allergy (Verified 03/07/17 15:08) Past Medical History - Social History Chew tobacco use (# tins/day): No Frequency of alcohol use: None Drug Abuse: None - Past Medical History Cardiac Medical History: Denies: Hx Coronary Artery Disease, Hx Heart Attack, Hx Hypertension Pulmonary Medical History: Denies: Hx Asthma, Hx Bronchitis, Hx COPD, Hx Pneumonia Neurological Medical History: Denies: Hx Cerebrovascular Accident, Hx Seizures Renal/ Medical History: Denies: Hx Peritoneal Dialysis Musculoskeltal Medical History: Denies Hx Arthritis Past Surgical History: Reports: Other - Liver biopsy recent - Immunizations Hx Diphtheria, Pertussis, Tetanus Vaccination: No - Patient denies History of Influenza Vaccine for 12/2016 - 05/2017 Season: No Physical Exam - Vital signs Vitals: Pulse Resp BP Pulse Ox 116 H 16 130/81 H 99 03/24/17 17:59 03/24/17 17:59 03/24/17 17:59 03/24/17 17:59 Course - Vital Signs Vital signs: Temp Pulse Resp BP Pulse Ox 116 H 16 130/81 H 99 03/24/17 17:59 03/24/17 17:59 03/24/17 17:59 03/24/17 17:59
[2017-03-24] MEDS ORDERED: MORPHINE SULFATE 10 MG/ML INJ IV ONE (18:55)
[2017-03-24] MEDS: NORMAL SALINE 1000 ML 1,000 ML IV PRN ×2 (18:57→22:53)
--- NOTE | 2017-03-24 19:00 | ER Document Report ---
ED GI/ - General Chief Complaint: Vomiting Stated Complaint: VOMITING Time Seen by Provider: 03/24/17 18:16 Mode of Arrival: Wheelchair Information source: Patient Notes: 51 years old male who was diagnosed with colon cancer with stage IV and metastatic lesions, presents today unable to eat for 3-4 days general weakness and dry mouth. And diffuse abdominal pain and discomfort. Status post chemotherapy last Friday, currently under the care of hematology. No fever chills no productive cough but shortness of breath on and off even minimal exertion. TRAVEL OUTSIDE OF THE [place] IN LAST 30 DAYS: No - Related Data Allergies/Adverse Reactions: grass pollen Allergy (Verified 03/07/17 15:08) Past Medical History - General Information source: Patient, Relative - Social History Smoking Status: Never Smoker Chew tobacco use (# tins/day): No Frequency of alcohol use: None Drug Abuse: None Family History: Reviewed & Not Pertinent Patient has suicidal ideation: No Patient has homicidal ideation: No - Past Medical History Cardiac Medical History: Denies: Hx Coronary Artery Disease, Hx Heart Attack, Hx Hypertension Pulmonary Medical History: Denies: Hx Asthma, Hx Bronchitis, Hx COPD, Hx Pneumonia Neurological Medical History: Denies: Hx Cerebrovascular Accident, Hx Seizures Renal/ Medical History: Denies: Hx Peritoneal Dialysis Musculoskeltal Medical History: Denies Hx Arthritis Past Surgical History: Reports: Other - Liver biopsy recent - Immunizations Hx Diphtheria, Pertussis, Tetanus Vaccination: No - Patient denies Review of Systems - Review of Systems Notes: REVIEW OF SYSTEMS: CONSTITUTIONAL : Denies fever, chills, or sweats. EENT: Denies eye, ear, throat, or mouth pain but has dry mouth. Denies nasal or sinus congestion or discharge. Denies throat, tongue, or mouth swelling or difficulty swallowing. CARDIOVASCULAR: Denies chest pain. Denies palpitations or racing or irregular heart beat. Denies ankle edema. RESPIRATORY: Denies cough, cold, or chest congestion. Denies shortness of breath, difficulty breathing, or wheezing. GASTROINTESTINAL: Denies abdominal pain or distention. Denies nausea, vomiting , or diarrhea. Denies blood in vomitus, stools, or per rectum. Denies black, tarry stools. Denies constipation. GENITOURINARY: Denies difficulty urinating, painful urination, burning, frequency, blood in urine, or discharge. MUSCULOSKELETAL: Denies back or neck pain or stiffness. Denies joint pain or swelling. SKIN: Denies rash, lesions or sores. HEMATOLOGIC : Denies easy bruising or bleeding. LYMPHATIC: Denies swollen, enlarged glands. NEUROLOGICAL: Denies confusion or altered mental status. Denies passing out or loss of consciousness. Denies dizziness or lightheadedness. Denies headache. Denies weakness or paralysis or loss of use of either side. Denies problems with gait or speech. Denies sensory loss, numbness, or tingling. Denies seizures. PSYCHIATRIC: Denies anxiety or stress. Denies depression, suicidal ideation, or homicidal ideation. ALL OTHER SYSTEMS REVIEWED AND NEGATIVE. Dictation was performed using [employer] voice recognition software PHYSICAL EXAMINATION: GENERAL: Cachexia of malignancy. Decreased breath sounds throughout the lung field HEAD: Atraumatic, normocephalic. EYES: Pupils equal round and reactive to light, extraocular movements intact, sclera icteric, conjunctiva are normal. ENT: Nares patent, oropharynx clear without exudates. Moist mucous membranes. NECK: Normal range of motion, supple without lymphadenopathy LUNGS: Breath sounds clear to auscultation bilaterally and equal. No wheezes rales or rhonchi. HEART: Regular rate and rhythm without murmurs ABDOMEN: Distended abdomen, tender diffusely Musculoskeletal: Severe muscular wasting normal range of motion, no pitting or edema. No cyanosis. NEUROLOGICAL: Cranial nerves grossly intact. Normal speech, normal gait. Normal sensory, motor exams PSYCH: Normal mood, normal affect. SKIN: Warm, Dry, normal turgor, no rashes or lesions noted. Physical Exam - Vital signs Vitals: Pulse Resp BP Pulse Ox 116 H 16 130/81 H 99 03/24/17 17:59 03/24/17 17:59 03/24/17 17:59 03/24/17 17:59 Course - Re-evaluation Re-evalutation: 03/24/17 23:19 Patient was given bicarb IV, IV fluids, case was discussed with surgical list connection worker as well as hospitalist. Currently admitted to the hospital surgically service. - Vital Signs Vital signs: Temp Pulse Resp BP Pulse Ox 97.2 F 116 H 16 130/81 H 99 03/24/17 19:00 03/24/17 17:59 03/24/17 17:59 03/24/17 17:59 03/24/17 17:59 - Laboratory Result Diagrams: 03/24/17 18:58 03/24/17 18:58 Laboratory results interpreted by me: 03/24/17 03/24/17 03/24/17 18:58 18:58 18:58 MCH 26.5 L MCHC 31.8 L RDW 16.6 H Seg Neutrophils % 84.5 H Monocytes % 1.9 L Sodium 133.5 L Chloride 97 L Carbon Dioxide 6 L* Anion Gap 31 H BUN 25 H Lactic Acid Total Bilirubin 2.8 H Direct Bilirubin 2.2 H AST 204 H ALT 108 H Alkaline Phosphatase 414 H Ammonia 52.2 H 03/24/17 18:58 MCH MCHC RDW Seg Neutrophils % Monocytes % Sodium Chloride Carbon Dioxide Anion Gap BUN Lactic Acid 14.4 H Total Bilirubin Direct Bilirubin AST ALT Alkaline Phosphatase Ammonia Critical Care Note - Critical Care Note Total time excluding time spent on procedures (mins): 60 Comments: Review of labs management of lactic acidosis Discharge - Discharge Clinical Impression: Lactic acidosis, Metastatic colon cancer to liver, Dehydration Appendicitis Qualifiers: Appendicitis type: unspecified Qualified Code(s): K37 - Unspecified appendicitis Condition: Poor Disposition: ADMITTED INPATIENT Admitting Provider: Surgicalist Unit Admitted: Surgical Floor
[2017-03-24 19:24] LABS: ABSOLUTE LYMPHOCYTES (AUTO) 1.3 10^3/uL (0.5-4.7); ABSOLUTE MONOCYTES (AUTO) 0.2 10^3/uL (0.1-1.4); BASOPHILS % (AUTO) 0.1 % (0-2); HEMATOCRIT 44.6 % (37.9-51.0); HEMOGLOBIN 14.2 g/dL (13.5-17.0); LYMPHOCYTES % (AUTO) 13.5 % (13-45); MEAN CORPUSCULAR HEMOGLOBIN 26.5 pg (27.0-33.4); MEAN CORPUSCULAR HGB CONC 31.8 g/dL (32.0-36.0); MEAN CORPUSCULAR VOLUME 84 fl (80-97); MONOCYTES % (AUTO) 1.9 % (3-13); PLATELET COUNT 301 10^3/uL (150-450); RED BLOOD COUNT 5.35 10^6/uL (4.35-5.55); RED CELL DISTRIBUTION WIDTH 16.6 % (11.5-14.0); SEGMENTED NEUTROPHILS % (AUTO) 84.5 % (42-78); TOTAL CELLS COUNTED % (AUTO) 100 %; WHITE BLOOD COUNT 9.5 10^3/uL (4.0-10.5)
--- NOTE | 2017-03-24 19:24 | RADIOLOGY REPORT (SQ) ---
EXAM DESCRIPTION: CHEST SINGLE VIEW COMPLETED DATE/TIME: 03/24/2017 7:15 pm REASON FOR STUDY: Colon cancer COMPARISON: 03/10/2017 EXAM PARAMETERS: NUMBER OF VIEWS: One view. TECHNIQUE: Single frontal radiographic view of the chest acquired. RADIATION DOSE: NA LIMITATIONS: None. FINDINGS: LUNGS AND PLEURA: No opacities, masses or pneumothorax. No pleural effusion. MEDIASTINUM AND HILAR STRUCTURES: No masses. Contour normal. HEART AND VASCULAR STRUCTURES: Heart normal in size. Normal vasculature. BONES: No acute findings. HARDWARE: Venous access catheter unchanged. OTHER: No other significant finding. IMPRESSION: NO ACUTE RADIOGRAPHIC FINDING IN THE CHEST. TECHNICAL DOCUMENTATION: JOB ID: [id number] [employer]- All Rights Reserved
[2017-03-24 19:42] LABS: ALANINE AMINOTRANSFERASE 108 U/L (21-72); ALBUMIN 3.6 g/dL (3.5-5.0); ALKALINE PHOSPHATASE 414 U/L (38-126); ASPARTATE AMINO TRANSFERASE 204 U/L (17-59); BILIRUBIN,DIRECT 2.2 mg/dL (0.0-0.4); BILIRUBIN,TOTAL 2.8 mg/dL (0.2-1.3); BLOOD UREA NITROGEN 25 mg/dL (7-20); CALCIUM 9.8 mg/dL (8.4-10.2); GLUCOSE 106 mg/dL (75-110); LIPASE 114.1 U/L (23-300)
[2017-03-24 20:05] LABS: ANION GAP 31 (5-19); POTASSIUM 4.1 mmol/L (3.6-5.0)
[2017-03-24 20:06] LABS: CHLORIDE 97 mmol/L (98-107); SODIUM 133.5 mmol/L (137-145)
[2017-03-24 20:09] LABS: CARBON DIOXIDE 6 mmol/L (22-30)
[2017-03-24] MEDS ORDERED: SODIUM BICARBONATE 8.4% INJ 50 MEQ/50 ML DISP.SYRIN IV ONE (21:23)
[2017-03-24] MEDS ORDERED: VANCOMYCIN HCL INJ 1000 MG VIAL IV ONE (21:23)
[2017-03-24] MEDS ORDERED: PIPERACILLIN/TAZOBACTAM 3.375 GM VIAL IV ONE (21:23)
--- NOTE | 2017-03-24 22:52 | RADIOLOGY REPORT (SQ) ---
EXAM DESCRIPTION: CT ABD/PELVIS WITH IV ONLY COMPLETED DATE/TIME: 03/24/2017 10:34 pm REASON FOR STUDY: Colon cancer COMPARISON: 02/28/2017 TECHNIQUE: CT scan of the abdomen and pelvis performed using helical scanning technique with dynamic intravenous contrast injection. No oral contrast. Images reviewed with lung, soft tissue, and bone windows. Reconstructed coronal and sagittal MPR images reviewed. Delayed images for evaluation of the urinary system also acquired. All images stored on PACS. All CT scanners at this facility use dose modulation, iterative reconstruction, and/or weight based d osing when appropriate to reduce radiation dose to as low as reasonably achievable (ALARA). [facility]: Dose Right [facility]: CareDose [facility]: Dose Right [facility]: Teradose 4D [facility]: [email or web address] CONTRAST TYPE AND DOSE: contrast/concentration: Isovue 370.00 mg/ml; Total Contrast Delivered: 180.0 ml; Total Saline Delivered: 107.0 ml RENAL FUNCTION: GFR > 60. RADIATION DOSE: CT Rad equipment meets quality standard of care and radiation dose reduction techniq ues were employed. CTDIvol: 7.9 - 9.8 mGy. DLP: 1945 mGy-cm.. LIMITATIONS: None. FINDINGS: LOWER CHEST: No significant findings. No nodules or infiltrates. LIVER: Diffuse metastatic disease. No significant change from previous. SPLEEN: Normal size. No focal lesions. PANCREAS: No masses. No significant calcifications. No adjacent inflammation or peripancreatic fluid collections. Pancreatic duct not dilated. GALLBLADDER: No identified stones by CT criteria. No inflammatory changes to suggest cholecystitis. ADRENAL GLANDS: No significant masses or asymmetry. RIGHT KIDNEY AND URETER: No solid masses. No significant calcifications. No hydronephrosis or hyd roureter. LEFT KIDNEY AND URETER: No solid masses. No significant calcifications. No hydronephrosis or hydr oureter. AORTA AND VESSELS: No aneurysm. No dissection. Renal arteries, SMA, celiac without stenosis. RETROPERITONEUM: No retroperitoneal adenopathy, hemorrhage or masses. BOWEL AND PERITONEAL CAVITY: Splenic flexure mass again noted. No evidence for obstruction. APPENDIX: The appendix is now mildly dilated at 1.2 cm. Suggestion of early appendicitis. PELVIS: No mass. No free fluid. Normal bladder. ABDOMINAL WALL: No masses. No hernias. BONES: No significant or acute findings. OTHER: No other significant finding. IMPRESSION: Interval development of appendiceal dilatation at 1.2 cm. Suspected early appendicitis. Diffuse liver metastases unchanged. Splenic flexure mass unchanged. . COMMENT: Pertinent findings on the imaging study reported as a CRITICAL RESULT to DAVID JACOME MD at22:46 on 03/24/2017. Category of Critical Result: Acute appendicitis. TECHNICAL DOCUMENTATION: JOB ID: [id number] Quality ID # [id number]: Final reports with documentation of one or more dose reduction techniques (e.g., Au tomated exposure control, adjustment of the mA and/or kV according to patient size, use of iterative reconstruction technique) 2010 [employer]- All Rights Reserved
[2017-03-24 23:59] LABS: ARTERIAL BLOOD BASE EXCESS -17.3 mmol/L; ARTERIAL BLOOD H2CO3 0.81 mmol/L (1.05-1.35); ARTERIAL BLOOD HCO3 9.6 mmol/L (20-26); ARTERIAL BLOOD O2 SATURATION 75.9 % (94-98); ARTERIAL BLOOD PCO2 26.9 mmHg (35-45); ARTERIAL BLOOD PO2 49.6 mmHg (80-100); ARTERIAL BLOOD TOTAL CO2 10.5 mmol/L (23-27)
--- NOTE | 2017-03-25 00:09 | PDOC PROGRESS REPORT ---
Subjective Progress Note for:: 03/25/17 Subjective:: Feels weak and pain upper abdomen. Had diarrhea and vomitings at home No fever . last chemo 5 days ago, vomitins and diarrhea since that time Reason For Visit: LACTIC ACIDOSIS, APPENDICITIS, CARCINOMA OF COLON Physical Exam Vital Signs: Temp Pulse Resp BP Pulse Ox 97.2 F 116 H 19 108/81 100 03/24/17 19:00 03/24/17 17:59 03/24/17 23:00 03/24/17 21:00 03/24/17 23:00 General appearance: PRESENT: other - Dehydrayed, jaundiced looks weak Head exam: PRESENT: other - icteric GI/Abdominal exam: PRESENT: other - No distention Soft abdomen Palpable , tender liver enlargement No tenderness in right lower quadrant Results Impressions: Abdomen/Pelvis CT 03/24/17 18:55 IMPRESSION: Interval development of appendiceal dilatation at 1.2 cm. Suspected early appendicitis. Diffuse liver metastases unchanged. Splenic flexure mass unchanged. . Chest X-Ray 03/24/17 18:56 IMPRESSION: NO ACUTE RADIOGRAPHIC FINDING IN THE CHEST. Assessment & Plan - Plan Summary Plan Summary: Stage 4 colon cancer with liver full of mets , primary in splenic flexure, causing partial colonoic obstruction, evident by mildly distended transverse colon and cecum and appendix dilation is part of the colonic dilation, not appendicitis. He main problems are terminal cancer, deconditioning, volume loss due to continued vomitings and diarrhea from chemotherapy associated with poor oral intake. Plan - resuscitation Monitoring Poor prognosis - explained to the family Diverting transverse loop colostomy in case partial colonic obstruction gets worse - that too can offer palliation only . Explained to the family in detail. Oncology consult and follow up DVT prophylaxis with Lovenox
[2017-03-25 00:20] LABS: ARTERIAL BLOOD FIO2 21%
[2017-03-25 00:21] LABS: ARTERIAL BLOOD PH 7.17 (7.35-7.45)
[2017-03-25] MEDS ORDERED: PIPERACILLIN/TAZOBACTAM 3.375 GM VIAL IV PRN (03:22)
[2017-03-25] MEDS ORDERED: INFLUENZA ADLT QUAD (36MOS+) 2017-18 VAC 0.5 ML SYR IM PRN (03:23)
[2017-03-25] MEDS ORDERED: NORMAL SALINE 1000 ML 1,000 ML IV ONE ×2 (03:30→08:00)
[2017-03-25] MEDS: POTASSI CL 20 MEQ/D5-1/2NS 1L 1000 ML IV PRN ×2 (04:00→14:47)
[2017-03-25] MEDS ORDERED: PIPERACILLIN/TAZOBACTAM 3.375 GM VIAL IV ONE (04:10)
[2017-03-25] MEDS: PIPERACILLIN SODIUM/TAZOBACTAM 3.375 GM in NORMAL SALINE 100 ML IV SCH ×3 (05:24→21:39)
[2017-03-25 05:48] LABS: HEMATOCRIT 40.1 % (37.9-51.0); HEMOGLOBIN 12.9 g/dL (13.5-17.0); MEAN CORPUSCULAR HEMOGLOBIN 26.7 pg (27.0-33.4); MEAN CORPUSCULAR HGB CONC 32.1 g/dL (32.0-36.0); MEAN CORPUSCULAR VOLUME 83 fl (80-97); PLATELET COUNT 232 10^3/uL (150-450); RED BLOOD COUNT 4.82 10^6/uL (4.35-5.55); RED CELL DISTRIBUTION WIDTH 16.4 % (11.5-14.0); WHITE BLOOD COUNT 10.8 10^3/uL (4.0-10.5)
[2017-03-25] MEDS: HYDROMORPHONE HCL INJ/PF 2 MG/ML AMPULE IV PRN ×2 (08:06→17:26)
--- NOTE | 2017-03-25 08:15 | PDOC CONSULTATION ---
Consultation Consult Date: 03/25/17 Attending physician:: DAKSHA BENAVIDEZ Consult reason:: Stage IV colon ca s/p cycle #1 of chemo here w/ N/V, diarrhea History of Present Illness Admission Date/PCP: 03/24/17 23:34 Patient complains of: N/V diarrhea History of Present Illness: ROBBIE MARIA JR is a 51 year old male w/ known hx of colon ca w/ liver mets, received cycle #1 of FOLFOX last week, comes w/ N/V and diarrhea, weakness, elevated lactic acid and concern of severe hypovolemia, had several episodes of diarrhea thru the night, received aggressive IVF hydration. C/o of b/l LE edema w/ pain RLE. In ICU b/c of elev lactate and concern of pending cardiogenic shock. He is getting another bolus currently. Past Medical History Cardiac Medical History: Denies: Coronary Artery Disease, Myocardial Infarction, Hypertension Pulmonary Medical History: Denies: Asthma, Bronchitis, Chronic Obstructive Pulmonary Disease (COPD), Pneumonia Neurological Medical History: Denies: Seizures Malignancy Medical History: Reports: Colorectal Cancer Musculoskeltal Medical History: Denies: Arthritis Hematology: Denies: Anemia Past Surgical History Past Surgical History: Reports: Other - Liver biopsy recent, port placement Social History Smoking Status: Never Smoker Frequency of Alcohol Use: None Hx Recreational Drug Use: Yes Drugs: None - Advance Directive Resuscitation Status: Full Code Family History Family History: Reviewed & Not Pertinent Parental Family History Reviewed: Yes Children Family History Reviewed: Yes Sibling(s) Family History Reviewed.: Yes Medication/Allergy Allergies/Adverse Reactions: grass pollen Allergy (Verified 03/07/17 15:08) Review of Systems Constitutional: ABSENT: chills, fever(s), headache(s), weight gain, weight loss Eyes: ABSENT: visual disturbances Ears: ABSENT: hearing changes Cardiovascular: ABSENT: chest pain, dyspnea on exertion, edema, orthropnea, palpitations Respiratory: ABSENT: cough, hemoptysis Gastrointestinal: ABSENT: abdominal pain, constipation, diarrhea, hematemesis, hematochezia, nausea, vomiting Genitourinary: ABSENT: dysuria, hematuria Musculoskeletal: ABSENT: joint swelling Integumentary: ABSENT: rash, wounds Neurological: ABSENT: abnormal gait, abnormal speech, confusion, dizziness, focal weakness, syncope Psychiatric: ABSENT: anxiety, depression, homidical ideation, suicidal ideation Endocrine: ABSENT: cold intolerance, heat intolerance, polydipsia, polyuria Hematologic/Lymphatic: ABSENT: easy bleeding, easy bruising Physical Exam Vital Signs: Temp Pulse Resp BP Pulse Ox 97.3 F 105 H 12 114/78 100 03/25/17 05:06 03/25/17 03:06 03/25/17 06:14 03/25/17 06:14 03/25/17 06:14 Intake & Output 03/24/17 03/25/17 03/26/17 06:59 06:59 06:59 Intake Total 350 Output Total 0 Balance 350 Weight 85.6 kg General appearance: PRESENT: no acute distress, well-developed, well-nourished Head exam: PRESENT: atraumatic, normocephalic Eye exam: PRESENT: conjunctiva pink, EOMI, PERRLA. ABSENT: scleral icterus Ear exam: PRESENT: normal external ear exam Mouth exam: PRESENT: moist, tongue midline Neck exam: ABSENT: carotid bruit, JVD, lymphadenopathy, thyromegaly Respiratory exam: PRESENT: clear to auscultation gayathri. ABSENT: rales, rhonchi, wheezes Cardiovascular exam: PRESENT: RRR. ABSENT: diastolic murmur, rubs, systolic murmur Pulses: PRESENT: normal dorsalis pedis pul Vascular exam: PRESENT: normal capillary refill GI/Abdominal exam: PRESENT: normal bowel sounds, soft. ABSENT: distended, guarding, mass, organolmegaly, rebound, tenderness Rectal exam: PRESENT: deferred Extremities exam: PRESENT: full ROM. ABSENT: calf tenderness, clubbing, pedal edema Neurological exam: PRESENT: alert, awake, oriented to person, oriented to place , oriented to time, oriented to situation, CN II-XII grossly intact. ABSENT: motor sensory deficit Psychiatric exam: PRESENT: appropriate affect, normal mood. ABSENT: homicidal ideation, suicidal ideation Skin exam: PRESENT: dry, intact, warm. ABSENT: cyanosis, rash Results Laboratory Results: 03/25/17 05:20 03/24/17 03/25/17 03/25/17 23:50 00:43 05:20 WBC RBC Hgb Hct MCV MCH MCHC RDW Plt Count Carbonic Acid 0.81 L HCO3/H2CO3 Ratio 11:1 ABG pH 7.17 L* ABG pCO2 26.9 L ABG pO2 49.6 L ABG HCO3 9.6 L ABG O2 Saturation 75.9 L ABG Base Excess -17.3 FiO2 21% Lactic Acid 11.8 H 11.0 H 03/25/17 05:20 WBC 10.8 H RBC 4.82 Hgb 12.9 L Hct 40.1 MCV 83 MCH 26.7 L MCHC 32.1 RDW 16.4 H Plt Count 232 Carbonic Acid HCO3/H2CO3 Ratio ABG pH ABG pCO2 ABG pO2 ABG HCO3 ABG O2 Saturation ABG Base Excess FiO2 Lactic Acid 03/25/17 05:20 NT-Pro-B Natriuret Pep 224 H Impressions: Abdomen/Pelvis CT 03/24/17 18:55 IMPRESSION: Interval development of appendiceal dilatation at 1.2 cm. Suspected early appendicitis. Diffuse liver metastases unchanged. Splenic flexure mass unchanged. . Chest X-Ray 03/24/17 18:56 IMPRESSION: NO ACUTE RADIOGRAPHIC FINDING IN THE CHEST. Assessment & Plan - Diagnosis (1) Dehydration Is this a current diagnosis for this admission?: Yes Plan: N/V and diarrhea noted, likely in part from chemo but also disease process. No evidence obstruction on CT. Con't aggressive hydration. (2) Edema, lower extremity Is this a current diagnosis for this admission?: Yes Plan: Maybe 2nd 3rd spacing but concern DVT, plan LE U/S b/l (3) Metastatic colon cancer to liver Plan: s/p cycle #1 chemo, next one would be next week, will monitor while inpt - Time Time Spent: Greater than 70 Minutes
[2017-03-25] MEDS ORDERED: ENOXAPARIN SODIUM INJ 40 MG/0.4 ML DISP.SYRIN SUBCUT SCH (10:00)
--- NOTE | 2017-03-25 11:43 | RADIOLOGY REPORT (SQ) ---
EXAM DESCRIPTION: VENOUS BILATERAL LOWER COMPLETED DATE/TIME: 03/25/2017 11:32 am REASON FOR STUDY: B/L LOWER EXTREMITY U/Z VASCULAR RE: EVAL SWELLING COMPARISON: None. TECHNIQUE: Dynamic and static shah scale and color images acquired of both lower extremity venous sy stems. Selected spectral images acquired with additional compression and augmentation maneuvers. Imag es stored on PACS. LIMITATIONS: None. FINDINGS: RIGHT LEG COMMON FEMORAL AND FEMORAL: Intraluminal thrombus is identified. POPLITEAL: Intraluminal thrombus is identified. CALF VESSELS: Normal compression and augmentation. No visualized echogenic material on grayscale. N o defects on color images. GSV AND SSV: Normal compression and augmentation. No visualized echogenic material on grayscale. No defects on color images. ANY DEEP VENOUS INSUFFICIENCY: Not evaluated. ANY EVIDENCE OF POPLITEAL CYST: No. OTHER: No other significant finding. LEFT LEG COMMON FEMORAL AND FEMORAL: Normal phasicity, compression and augmentation. No visualized echogenic m aterial on shah scale. No defects on color images. POPLITEAL: Normal compression and augmentation. No visualized echogenic material on shah scale. No de fects on color images. CALF VESSELS: Normal compression and augmentation. No visualized echogenic material on shah scale. No defects on color images. GSV AND SSV: Normal compression. No visualized echogenic material on shah scale. No defects on color images. ANY DEEP VENOUS INSUFFICIENCY: Not evaluated. ANY EVIDENCE POPLITEAL CYST: No. OTHER: No other significant finding. IMPRESSION: Findings consistent with deep venous thrombosis in the right lower extremity extending f rom the level of the common femoral vein to the level of the popliteal vein. No evidence for deep ve nous thrombosis on the left. Other findings as noted above TECHNICAL DOCUMENTATION: JOB ID: [id number] [employer]- All Rights Reserved
[2017-03-25] MEDS ORDERED: ENOXAPARIN SODIUM INJ 80 MG/0.8 ML DISP.SYRIN SUBCUT ONE ×2 (12:30→13:00)
--- NOTE | 2017-03-25 13:01 | HISTORY AND PHYSICAL E ---
History and Physical NAME: ROBBIE MARIA : 1965 AGE: 51Y ADMITTED: 03/24/2017 ROOM: 603 CHIEF COMPLAINT: Patient is being admitted to the hospital for management of severe dehydration, abdominal pain, questionable dilated appendix. HISTORY OF PRESENT ILLNESS: This unfortunate male patient was diagnosed to have metastatic colon cancer in January, and started his first chemotherapy which he finished approximately 5 days ago. Since the completion of chemotherapy, patient has been nauseated, vomiting, with diarrhea. He did call the oncologist and he was told to go to the emergency room but he did not. He tried home remedies; did not get any better. For the past 2 days he gotten more sicker, and came to the emergency room. At this point he complains of upper abdominal pain, nausea, feeling weak and tired, and no appetite. He lost 25 pounds in the last few weeks. Unable to eat. Last bowel movement here was today this morning. He had a lot of diarrhea stool. PAST MEDICAL PROBLEMS: No major medical problem except for a recently diagnosed metastatic colon cancer with multiple liver metastases. At home he has no history of fever. He has nausea, vomiting, and diarrhea. SURGICAL HISTORY: No surgeries except for a MediPort and a percutaneous liver biopsy. PHYSICAL EXAMINATION: GENERAL: Examination-pack, he looks emaciated, dehydrated, looks weak, still very pleasant and alert and oriented. VITAL SIGNS: Temperature 97.2, heart rate around 102-116, blood pressure 108-120 systolic, and saturating around 100%. Respiratory rate 18-19. HEENT: Mildly icteric. He does have jaundice on examination. HEAD/NECK: No lymphadenopathy or masses. RESPIRATORY: Both lungs have good air entry. CARDIOVASCULAR: Both heart sounds are regular. No murmurs or gallops. ABDOMEN: No distention. At top of abdomen is a palpable tender liver. In the right lower abdomen, no tenderness whatsoever. No palpable mass in the right lower abdomen. EXTREMITIES: Right lower extremity: Edematous, rule out DVT. Bilateral Doppler study done as per the patient, done 2 weeks ago. He was told to have no DVT. LABORATORY DATA: White count was 9.5, hemoglobin 14.2. Sodium 133, potassium 4.1, chloride 97, carbon dioxide 6, BUN 25, creatinine 0.83. Lactic acid 14. Total bilirubin 2.8, direct is 2.2. IMAGING STUDIES: CT scan of abdomen and pelvis which reveals no in abdomen. In the liver, diffuse liver metastatic disease, splenic flexure mass. Did not show any evidence of obstruction of the colon. Appendix is mildly dilated. There are no signs of inflammation around the appendix area. IMPRESSION: Overall, the dilated appendix is most likely due to colonic obstruction of the splenic flexure mass causing some degree of diffuse colonic wall thickening and dilation. He has clinically no signs of acute appendicitis whatsoever. His main present pain is mainly from chemotherapy related with nausea and vomiting intolerance, and the pain is mostly around the liver of metastatic disease. At this point, his general condition is poor, his nutrition is poor. His mental status is very severe acute mental status. I do not recommend any surgical intervention because there are no clinical signs of an acute appendicitis. More than likely, his dilation is due to his splenic flexure mass which, even though not completely obstructing, he does have some degree of transverse colon dilation compared to the rest of the colon, dilated cecum to some degree, and dilated appendix as a part of the colon. Since patient still has some gas in the descending colon, there is no total occlusion so do not recommend any surgery because not total obstruction, partial obstruction, or partial slow . PLAN: Once he gets hydration therapy, the patient and the patient's family decided to have palliative care. He may need an ileostomy in the future. From this point, n.p.o. hydration, admission to hospital, monitoring, Oncology consultation. I did discuss with the patient and the patient's family at the bedside, explained to them all his poor prognosis with this metastatic diffuse disease, his prognosis is pretty poor. Wonder if palliative care is more appropriate than anything, which they agree with the plan of management. DICTATING PHYSICIAN: DAKSHA BENAVIDEZ M.D. [id number] PHY#: [id number] ID: [id number] JOB#: [id number] ACCT: [id number] cc: >
[2017-03-25] MEDS ORDERED: SUCCINYLCHOLINE CHLORIDE INJ 200 MG/10 ML VIAL ONE (14:39)
[2017-03-25] MEDS: ONDANSETRON HCL INJ/PF 4 MG/2 ML SDV IV PRN (19:42)
--- NOTE | 2017-03-25 20:05 | PDOC PROGRESS REPORT ---
Subjective Progress Note for:: 03/25/17 Subjective:: Upon patient midday today. He is conversant. States his abdominal pain is resolving. Would like to try liquids. Nausea is much better than last night. Reason For Visit: ABD PAIN,METASTATIC CA Physical Exam Vital Signs: Temp Pulse Resp BP Pulse Ox 97.9 F 99 7 L 120/66 98 03/25/17 19:37 03/25/17 18:00 03/25/17 18:14 03/25/17 18:14 03/25/17 18:14 Intake & Output 03/24/17 03/25/17 03/26/17 06:59 06:59 06:59 Intake Total 350 1204 Output Total 0 325 Balance 350 879 Weight 85.6 kg GI/Abdominal exam: PRESENT: hyperactive bowel sounds, other - This abdomen is fairly benign at this time. No tenderness in the right lower quadrant.. ABSENT : guarding, hernia Results Laboratory Results: 03/25/17 05:20 03/24/17 03/25/17 03/25/17 23:50 00:43 05:20 WBC RBC Hgb Hct MCV MCH MCHC RDW Plt Count Carbonic Acid 0.81 L HCO3/H2CO3 Ratio 11:1 ABG pH 7.17 L* ABG pCO2 26.9 L ABG pO2 49.6 L ABG HCO3 9.6 L ABG O2 Saturation 75.9 L ABG Base Excess -17.3 FiO2 21% Lactic Acid 11.8 H 11.0 H 03/25/17 05:20 WBC 10.8 H RBC 4.82 Hgb 12.9 L Hct 40.1 MCV 83 MCH 26.7 L MCHC 32.1 RDW 16.4 H Plt Count 232 Carbonic Acid HCO3/H2CO3 Ratio ABG pH ABG pCO2 ABG pO2 ABG HCO3 ABG O2 Saturation ABG Base Excess FiO2 Lactic Acid 03/25/17 05:20 NT-Pro-B Natriuret Pep 224 H Impressions: Abdomen/Pelvis CT 03/24/17 18:55 IMPRESSION: Interval development of appendiceal dilatation at 1.2 cm. Suspected early appendicitis. Diffuse liver metastases unchanged. Splenic flexure mass unchanged. . Chest X-Ray 03/24/17 18:56 IMPRESSION: NO ACUTE RADIOGRAPHIC FINDING IN THE CHEST. Venous Doppler Study 03/25/17 00:00 IMPRESSION: Findings consistent with deep venous thrombosis in the right lower extremity extending from the level of the common femoral vein to the level of the popliteal vein. No evidence for deep venous thrombosis on the left. Other findings as noted above Assessment & Plan - Diagnosis (1) Dehydration Is this a current diagnosis for this admission?: Yes Plan: Continue IV hydration. Also will allow patient to begin clear liquids if does not become nauseated. (2) Lactic acidosis Is this a current diagnosis for this admission?: Yes Plan: [place] to be most likely on the basis of the patient's severe dehydration related to nausea and vomiting for several days at home. He admits today to holding off on letting his physicians know this after he got chemo last week. (3) Metastatic colon cancer to liver Is this a current diagnosis for this admission?: Yes Plan: Discussions by my predecessor regarding palliation were reiterated with the patient and his significant other. For now they would like to talk to their oncologist in consider their options. It may be that he would want to consider tenuis some palliative chemotherapy if it does not give him as much symptoms as this time. He admitted to us the nurse adolph today that he understands that his condition is not good. His significant other asked about donating half of her liver and I explained that this would not help as the tumor is probably spread much throughout his body in a microscopic fashion. (4) DVT (deep venous thrombosis) Qualifiers: DVT location: lower extremity Affected thrombotic vein of extremity: femoral Chronicity: acute Laterality: right Qualified Code(s): I82.411 - Acute embolism and thrombosis of right femoral vein Is this a current diagnosis for this admission?: Yes Plan: Full dose Lovenox has been started. Of note nurse just recently told me that he had a somewhat bloody bowel movement. Because he has a known tumor in the splenic flexure we will need to watch this. We will plan to repeat LA, electrolytes, and CBC in the morning because of this. - Time Time Spent with patient: 15-24 minutes
[2017-03-25] MEDS: ENOXAPARIN SODIUM INJ 80 MG/0.8 ML DISP.SYRIN SUBCUT SCH (21:38)
[2017-03-26] MEDS: POTASSI CL 20 MEQ/D5-1/2NS 1L 1000 ML IV PRN (01:51)
[2017-03-26] MEDS: HYDROMORPHONE HCL INJ/PF 2 MG/ML AMPULE IV PRN ×3 (02:12→12:05)
[2017-03-26] MEDS: ONDANSETRON HCL INJ/PF 4 MG/2 ML SDV IV PRN (02:12)
[2017-03-26] MEDS: PIPERACILLIN SODIUM/TAZOBACTAM 3.375 GM in NORMAL SALINE 100 ML IV SCH (05:59)
[2017-03-26 06:23] LABS: HEMOGLOBIN 12.2 g/dL (13.5-17.0); MEAN CORPUSCULAR HEMOGLOBIN 26.8 pg (27.0-33.4); MEAN CORPUSCULAR HGB CONC 31.3 g/dL (32.0-36.0); MEAN CORPUSCULAR VOLUME 86 fl (80-97); PLATELET COUNT 179 10^3/uL (150-450); RED BLOOD COUNT 4.56 10^6/uL (4.35-5.55); RED CELL DISTRIBUTION WIDTH 16.7 % (11.5-14.0); WHITE BLOOD COUNT 8.8 10^3/uL (4.0-10.5)
[2017-03-26 06:49] LABS: BLOOD UREA NITROGEN 36 mg/dL (7-20); CALCIUM 8.7 mg/dL (8.4-10.2); CHLORIDE 99 mmol/L (98-107); GLUCOSE 119 mg/dL (75-110)
[2017-03-26 07:08] LABS: POTASSIUM 4.9 mmol/L (3.6-5.0)
[2017-03-26 07:12] LABS: CARBON DIOXIDE 7 mmol/L (22-30)
--- NOTE | 2017-03-26 09:12 | PDOC PROGRESS REPORT ---
Subjective Progress Note for:: 03/26/17 Subjective:: No acute events overnight but in review of the labs acidosis status has not really improved. Reason For Visit: ABD PAIN,METASTATIC CA Physical Exam Vital Signs: Temp Pulse Resp BP Pulse Ox 97.0 F 100 9 L 115/74 98 03/26/17 07:46 03/26/17 07:46 03/26/17 07:46 03/26/17 07:46 03/26/17 07:46 Intake & Output 03/25/17 03/26/17 03/27/17 06:59 06:59 06:59 Intake Total 350 2634 Output Total 0 450 Balance 350 2184 Weight 85.6 kg 89.5 kg General appearance: PRESENT: no acute distress, well-developed, well-nourished Head exam: PRESENT: atraumatic, normocephalic Eye exam: PRESENT: conjunctiva pink, EOMI, PERRLA. ABSENT: scleral icterus Ear exam: PRESENT: normal external ear exam Mouth exam: PRESENT: moist, tongue midline Neck exam: ABSENT: carotid bruit, JVD, lymphadenopathy, thyromegaly Respiratory exam: PRESENT: clear to auscultation gayathri. ABSENT: rales, rhonchi, wheezes Cardiovascular exam: PRESENT: RRR. ABSENT: diastolic murmur, rubs, systolic murmur Pulses: PRESENT: normal dorsalis pedis pul Vascular exam: PRESENT: normal capillary refill GI/Abdominal exam: PRESENT: normal bowel sounds, soft. ABSENT: distended, guarding, mass, organolmegaly, rebound, tenderness Rectal exam: PRESENT: deferred Extremities exam: PRESENT: full ROM. ABSENT: calf tenderness, clubbing, pedal edema Neurological exam: PRESENT: alert, awake, oriented to person, oriented to place , oriented to time, oriented to situation, CN II-XII grossly intact. ABSENT: motor sensory deficit Psychiatric exam: PRESENT: appropriate affect, normal mood. ABSENT: homicidal ideation, suicidal ideation Skin exam: PRESENT: dry, intact, warm. ABSENT: cyanosis, rash Results Laboratory Results: 03/26/17 06:00 03/26/17 06:00 03/26/17 03/26/17 03/26/17 06:00 06:00 06:00 WBC 8.8 RBC 4.56 Hgb 12.2 L Hct 39.0 MCV 86 MCH 26.8 L MCHC 31.3 L RDW 16.7 H Plt Count 179 Sodium 131.0 L Potassium 4.9 Chloride 99 Carbon Dioxide 7 L* Anion Gap Not Reportable BUN 36 H Creatinine 1.41 H Est GFR ( Amer) > 60 Est GFR (Non-Af Amer) 53 L Glucose 119 H Lactic Acid 13.8 H Calcium 8.7 03/25/17 05:20 NT-Pro-B Natriuret Pep 224 H Impressions: Abdomen/Pelvis CT 03/24/17 18:55 IMPRESSION: Interval development of appendiceal dilatation at 1.2 cm. Suspected early appendicitis. Diffuse liver metastases unchanged. Splenic flexure mass unchanged. . Chest X-Ray 03/24/17 18:56 IMPRESSION: NO ACUTE RADIOGRAPHIC FINDING IN THE CHEST. Venous Doppler Study 03/25/17 00:00 IMPRESSION: Findings consistent with deep venous thrombosis in the right lower extremity extending from the level of the common femoral vein to the level of the popliteal vein. No evidence for deep venous thrombosis on the left. Other findings as noted above Assessment & Plan - Diagnosis (1) Dehydration Is this a current diagnosis for this admission?: Yes Plan: Continue with current hydration, the patient remains fairly severely acidotic, I will get hospitalist team involved to manage this. (2) Edema, lower extremity Is this a current diagnosis for this admission?: Yes Plan: DVT noted, patient started on Lovenox (3) Metastatic colon cancer to liver Is this a current diagnosis for this admission?: Yes Plan: Patient given cycle #1 of chemotherapy now about 7 days ago, continue to monitor. (4) DVT (deep venous thrombosis) Qualifiers: DVT location: lower extremity Affected thrombotic vein of extremity: femoral Chronicity: acute Laterality: right Qualified Code(s): I82.411 - Acute embolism and thrombosis of right femoral vein Is this a current diagnosis for this admission?: Yes Plan: Continue with Lovenox. - Time Time Spent with patient: 35 or more minutes - Inpatient Certification Based on my medical assessment, after consideration of the patient's comorbidities, presenting symptoms, or acuity I expect that the services needed warrant INPATIENT care.: Yes I certify that my determination is in accordance with my understanding of Medicare's requirements for reasonable and necessary INPATIENT services [42 CFR 412.3e].: Yes Medical Necessity: Failure to Improve With Outpatient Therapy, Risk of Complication if Not Cared For in Hospital
[2017-03-26] MEDS: ENOXAPARIN SODIUM INJ 80 MG/0.8 ML DISP.SYRIN SUBCUT SCH ×2 (09:31→21:52)
--- NOTE | 2017-03-26 10:22 | PDOC PROGRESS REPORT ---
Subjective Progress Note for:: 03/26/17 Subjective:: Discussed with hospitalist service was consulted this morning. Somnolent today. He is conversant with but more sedated than yesterday. No Nausea patient and have expressed desire for comfort care only. He expressed this to me yesterday also. Labs discussed with showing worsening acidosis. Reason For Visit: ABD PAIN,METASTATIC CA Physical Exam Vital Signs: Temp Pulse Resp BP Pulse Ox 97.0 F 100 11 L 116/70 97 03/26/17 07:46 03/26/17 07:46 03/26/17 09:15 03/26/17 09:15 03/26/17 09:15 Intake & Output 03/25/17 03/26/17 03/27/17 06:59 06:59 06:59 Intake Total 350 2634 Output Total 0 450 Balance 350 2184 Weight 85.6 kg 89.5 kg General appearance: PRESENT: thin, other - Open mouth breathing with decreased level of consciousness but occasionally awakens and talks with . Head exam: PRESENT: atraumatic Mouth exam: PRESENT: dry mucosa Results Laboratory Results: 03/26/17 06:00 03/26/17 06:00 03/26/17 03/26/17 03/26/17 06:00 06:00 06:00 WBC 8.8 RBC 4.56 Hgb 12.2 L Hct 39.0 MCV 86 MCH 26.8 L MCHC 31.3 L RDW 16.7 H Plt Count 179 Sodium 131.0 L Potassium 4.9 Chloride 99 Carbon Dioxide 7 L* Anion Gap Not Reportable BUN 36 H Creatinine 1.41 H Est GFR ( Amer) > 60 Est GFR (Non-Af Amer) 53 L Glucose 119 H Lactic Acid 13.8 H Calcium 8.7 03/25/17 05:20 NT-Pro-B Natriuret Pep 224 H Impressions: Abdomen/Pelvis CT 03/24/17 18:55 IMPRESSION: Interval development of appendiceal dilatation at 1.2 cm. Suspected early appendicitis. Diffuse liver metastases unchanged. Splenic flexure mass unchanged. . Chest X-Ray 03/24/17 18:56 IMPRESSION: NO ACUTE RADIOGRAPHIC FINDING IN THE CHEST. Venous Doppler Study 03/25/17 00:00 IMPRESSION: Findings consistent with deep venous thrombosis in the right lower extremity extending from the level of the common femoral vein to the level of the popliteal vein. No evidence for deep venous thrombosis on the left. Other findings as noted above Assessment & Plan - Diagnosis (1) Dehydration Is this a current diagnosis for this admission?: Yes Plan: Continue comfort care with fluids via port. May also have ice chips or fluids as tolerated without choking. Discussed with . (2) Lactic acidosis Is this a current diagnosis for this admission?: Yes Plan: [place] to be most likely on the basis of the patient's severe dehydration related to nausea and vomiting for several days at home. He admits today to holding off on letting his physicians know this after he got chemo last week. (3) Metastatic colon cancer to liver Is this a current diagnosis for this admission?: Yes Plan: Discussions by my predecessor regarding palliation were reiterated with the patient and his significant other. For now they would like to talk to their oncologist in consider their options. It may be that he would want to consider some palliative chemotherapy if it does not give him as much symptoms as this time. He understands that his condition is not good. Discussed his deterioration overnight with patient's . She had a good discussion with hospitalist PA/POND SUPERVISOR this morning and patient is now comfort care only. I believe this is appropriate. (4) DVT (deep venous thrombosis) Qualifiers: DVT location: lower extremity Affected thrombotic vein of extremity: femoral Chronicity: acute Laterality: right Qualified Code(s): I82.411 - Acute embolism and thrombosis of right femoral vein Is this a current diagnosis for this admission?: Yes Plan: Full dose Lovenox has been started. Of note nurse just recently told me that he had a somewhat bloody bowel movement. Because he has a known tumor in the splenic flexure we will need to watch this. We will plan to repeat LA, electrolytes, and CBC in the morning because of this.
[2017-03-26] MEDS: PROMETHAZINE HCL INJ 25 MG/1 ML VIAL IV PRN (12:05)
--- NOTE | 2017-03-26 14:48 | CONSULTATION REPORT E ---
Consultation Report NAME: ROBBIE MARIA : 1965 AGE: 51Y DATE: 03/26/2017 426 B TO: LIBBY GOOD CODE STATUS: DO NOT RESUSCITATE/DO NOT INTUBATE. ATTENDING SERVICE: Surgicalist service CONSULTING PHYSICIAN: Dr. Farley REASON FOR CONSULTATION: Metabolic acidosis. HISTORY OF PRESENT ILLNESS: The patient is a 51-year-old -[place] male with a past medical history of metastatic colon cancer with mets to the liver. The patient presented to the emergency department with a chief complaint of abdominal pain. The patient was found to be dehydrated with a questionable dilated appendix while in the emergency department. The patient apparently was first diagnosed with colon cancer in January 2017. The patient was started on chemotherapy during that time, which lasted for 5 days. Since the completion of chemotherapy, the patient has been nauseous, vomited, and had episodes of diarrhea. Apparently, the patient had tried numerous home remedies without benefit, and the patient progressively was sick for the 48 hours prior to presentation with upper abdominal pain and progressing weakness. The patient's reported a 25 pound weight loss in just the last few weeks alone, and the patient was referred to the surgicalist for admission and management as there was fear for obstruction versus appendicitis. The patient was admitted to intensive care unit. The patient was placed on gram-negative anaerobe coverage given his presentation. The patient continued to have diarrhea and developed lower GI bleeding. The morning of 03/26/2017, the hospitalist was consulted given the patient's severe metabolic acidosis. The patient did have a pH of 7.17, a PCO2 of 46 with a PO2 of 49. Additionally, the patient's carbon dioxide on chemistry was found to be 7 as well as a creatinine of 1.41. The patient has had a persistent lactic acidosis, which was concerning for possible microperforation and persistently affected state. The patient did have a positive set of blood cultures, which revealed a gram-negative roseline. PAST MEDICAL HISTORY: Remarkable for: 1. Colorectal cancer with mets to the liver. 2. Persistent GI blood losses. PAST SURGICAL HISTORY: Includes: 1. Right port-A-Cath placement. 2. Percutaneous liver biopsy. ALLERGIES: Include: 1. GRASS. 2. POLLEN. HOME MEDICATIONS: Include: 1. Vitamin B12 1000 mcg p.o. daily. 2. Lasix 20 mg p.o. daily. 3. Dilaudid 2 mg p.o. q. 4 hours p.r.n. 4. Multivitamin 1 tablet p.o. daily. 5. Phenergan 25 mg p.o. q. 4 hours p.r.n. SOCIAL HISTORY: The patient resides at home with his who is his primary caregiver. 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 The patient denies any tobacco use, alcohol, or illicit drug use. FAMILY MEDICAL HISTORY: The patient is estranged from his family. REVIEW OF SYSTEMS: Unobtainable. PHYSICAL EXAMINATION: GENERAL: On examination, the patient is a frail, chronically ill-appearing 31-year-old -[place] male who is completely obtunded, very minimally responsive with evidence of apnea. VITAL SIGNS: Temperature is 97.0, pulse 83, respirations are variant from 8-12 with a blood pressure of 116/67, oxygen saturation is 93% on 2 L nasal cannula. SKIN: Jaundiced, dry. He is not diaphoretic. HEENT: Pupils are pinpoint. Sclera is icterus. Conjunctiva is pale. Mucous membranes appear dry. No JVP. No palpable lymphadenopathy or thyromegaly. CARDIOVASCULAR SYSTEM: Heart is regular. He has no murmur or rub. CHEST: Diminished, symmetrical, unlabored. ABDOMEN: Mildly distended with no area of focal tenderness. Bowel sounds are hyperactive. EXTREMITIES: Cool to the touch with bilateral lower extremity dependent edema. BACK: The patient does have sacral edema. PSYCHIATRIC: Unable to assess. DIAGNOSTICS: Lab values are as follows: Hematology obtained on 03/26/2017: WBCs are 8.8, hemoglobin is 12.2, hematocrit is 39.0, platelet count is 179,000. Chemistry obtained on 03/26/2017: Sodium is 131, potassium 4.9, chloride is 99, carbon dioxide 7, BUN 36, creatinine is 1.41, glucose 53, calcium is 8.7, glucose 119, BNP is 229. IMPRESSION AND PLAN: 1. Metabolic acidosis. This appears to be related to GI fluid loss. The patient has been aggressively hydrated, and in spite of this, the patient's creatinine has continued to bump. Had a lengthy conversation with the patient's who has been considering comfort measures for 2 days now and states she would like to proceed with such as she feels that her 's is eminent. Given the patient's clinical picture, this does appear apparent. 2. Metastatic colon cancer with mets to the liver. Will proceed with comfort measures. 3. Acute renal failure. This may be end organ failure related to the patient's underlying process. 4. Deep vein thrombosis. Will continue the patient's subcu Lovenox for now. Will follow. 5. Gram-negative roseline bacteremia, most likely secondary to microperforation related to his metastatic cancer. The patient will be comfort measures. DISPOSITION: The patient is a DNR/DNI with comfort care measures only. If the patient survives the evening, will proceed with possible inpatient hospice. However, the patient's prognosis is quite grave and does appear eminent. Time spent on this consultation including assessment, plan, physical examination, attempt at patient education, and family meeting, multispecialty collaboration is 60 minutes. DICTATING PHYSICIAN: SIERRA NORMAN NP [id number] PHY#: [id number] ID: [id number] JOB#: [id number] ACCT: [id number] cc:SIERRA NORMAN NP > MTDD
[2017-03-27] MEDS ORDERED: ENOXAPARIN SODIUM INJ 100 MG/1 ML DISP.SYRIN SUBCUT SCH (10:00)
[2017-03-27] MEDS: HYDROMORPHONE HCL INJ/PF 2 MG/ML AMPULE IV PRN ×2 (10:07→22:12)
[2017-03-27] MEDS: POTASSI CL 20 MEQ/D5-1/2NS 1L 1000 ML IV PRN (10:07)
--- NOTE | 2017-03-27 11:03 | PROGRESS NOTE E ---
Progress Note NAME: ROBBEI MORAN : 1965 AGE: 51Y DATE: 03/27/2017 ROOM: 426 SUBJECTIVE: Mr. Moran is lying in bed. The patient will awaken but goes right back to sleep. The patient was dry heaving during visit. Apparently the patient had been given breakfast this morning by the and the patient had been able to move under his own strength. The patient clinically appears improved in comparison to yesterday. In spite of comfort measures yesterday, the patient was to continue on Lovenox as well as IV hydration. Labs were deferred. Upon discussion with the yesterday, did discuss keeping him comfortable in given that the patient's clinical picture was grave yesterday as his respirations were 4 and he was completely obtunded. Given that the patient's condition did improve overnight, currently reevaluating overall clinical picture. The would want the patient to continue with IV fluids as well as antibiotics and Lovenox injections which does seem reasonable. The patient himself describes himself as "miserable" and no other concerns are voiced at this time. REVIEW OF SYSTEMS: A full review of systems is unappreciated given the patient's mental status. MEDICATIONS: Have been reviewed. OBJECTIVE: GENERAL: The patient is a 51-year-old -[place]er male who is groggy but will awaken. He has persistent hiccups and dry heaves, and does not appear to be distressed. VITAL SIGNS: Temperature is 97.4, pulse 83, blood pressure is 116/67, and oxygen saturation is 92% on room air. SKIN: Jaundiced. He is not diaphoretic. HEENT: Sclerae are icterus. The patient does have periorbital edema with JVP to the right clavicle. CARDIOVASCULAR: Heart is regular. No rub. CHEST: Diminished, symmetrical, unlabored but variant. ABDOMEN: Nontender, nondistended. EXTREMITIES: The patient does have lower extremity edema. DIAGNOSTICS: Lab values are as follows: Hematology obtained on 03/26/2017: WBCs are 8.8, hemoglobin is 12.2, hematocrit is 39.0, platelet count is 179,000. Chemistry obtained on 03/26/2017: Sodium is 131, potassium 4.9, chloride is 99, carbon dioxide 7, BUN 36, creatinine is 1.41, glucose 119, calcium is 8.7. IMPRESSION AND PLAN: 1. GRAM NEGATIVE AYUSH BACTEREMIA. Feel strongly this may be due to microperforation. Regardless, the patient is not seen as a surgical candidate. Will continue anaerobe gram negative coverage and monitor. 2. SEPSIS SECONDARY TO #1. 3. METABOLIC ACIDOSIS. This does appear to be related to the GI losses. The patient will continue to be hydrated and repeat chemistries in the a.m. 4. COLON CANCER WITH METS TO THE LIVER. The patient is unable to voice any interest at this time. Did discuss this with the who would like to see how this hospitalization goes and then seek treatment options. 5. ACUTE RENAL FAILURE. The patient has had a reasonable amount of output. Feel this may be end organ failure relating to the patient's underlying processes. 6. DEEP VEIN THROMBOSIS. Will continue IV Lovenox. 7. GI BLEED. The patient did have 2 large bleeds per rectum yesterday, however, this appears to have ceased now for 24 hours. Will monitor the resumption of Lovenox carefully and follow. DISPOSITION: The patient is a DO NOT RESUSCITATE/DO NOT INTUBATE with relatively conservative management. The patient did survive the evening, therefore, things have been reevaluated. Will continue the above course. The patient is to be seen by Palliative Care today as well. The patient's prognosis is still quite guarded but the picture is not as grave as it was yesterday. Time spent on this followup including assessment, plan, physical examination, attempt at patient education, family meeting, and specialty collaboration is 35 minutes. DICTATING PHYSICIAN: SIERRA NORMAN NP [id number] PHY#: [id number] ID: [id number] JOB#: [id number] ACCT: [id number] cc: >
[2017-03-27] MEDS: MEROPENEM 1 GM in NORMAL SALINE 50 ML IV SCH ×2 (15:05→22:02)
--- NOTE | 2017-03-27 16:13 | PDOC PROGRESS REPORT ---
Subjective Progress Note for:: 03/27/17 Subjective:: Patient lying in bed with hiccups, but does not speak. He will open his eyes to command, but unable to answer any questions. is at bedside and states that she was told yesterday that he would most likely not survive the next 24 hours. Yet, since yesterday, he seems to have improved. He is more alert and is able to drink some. She asks if he is allowed to have something to eat. Reason For Visit: ABD PAIN,METASTATIC CA Physical Exam Vital Signs: Temp Pulse Resp BP Pulse Ox 97.5 F 95 16 109/66 97 03/27/17 12:00 03/27/17 12:00 03/27/17 12:00 03/27/17 12:00 03/27/17 12:00 Intake & Output 03/26/17 03/27/17 03/28/17 06:59 06:59 06:59 Intake Total 2634 13 Output Total 450 0 Balance 2184 13 Weight 89.5 kg 89.9 kg Exam: Thin, 51 year old male who appears uncomfortable lying in bed, but no acute distress. Respiratory exam: PRESENT: clear to auscultation gayathri Cardiovascular exam: PRESENT: irregular rhythm GI/Abdominal exam: PRESENT: soft, tenderness Extremities exam: PRESENT: +2 edema - R>L LE. Results Laboratory Results: 03/26/17 06:00 03/26/17 06:00 03/25/17 05:20 NT-Pro-B Natriuret Pep 224 H Impressions: Abdomen/Pelvis CT 03/24/17 18:55 IMPRESSION: Interval development of appendiceal dilatation at 1.2 cm. Suspected early appendicitis. Diffuse liver metastases unchanged. Splenic flexure mass unchanged. . Chest X-Ray 03/24/17 18:56 IMPRESSION: NO ACUTE RADIOGRAPHIC FINDING IN THE CHEST. Venous Doppler Study 03/25/17 00:00 IMPRESSION: Findings consistent with deep venous thrombosis in the right lower extremity extending from the level of the common femoral vein to the level of the popliteal vein. No evidence for deep venous thrombosis on the left. Other findings as noted above Assessment & Plan - Plan Summary Plan Summary: Patient was discussed at length with Dr. Wyatt. Yesterday, patient was having large amounts of GI bleeding and agonal breathing with profound acidosis. Lovenox was stopped due to active bleeding. He is a DNR. Still unclear if patient will survive this hospitalization. Palliative care will be seeing patient and later today. He has only received 1 cycle of chemotherapy, so it is too soon to tell if he will have any response to this. However, concern for GI perforation is valid. I agree with plans to allow patient to eat and drink, but will be counselled about possible aspiration and dangers of this with perforated bowel. had initially requested that fluids and IV antibiotics be restarted. This has been done. Although Lovenox was re-ordered, due to the history of profound bleeding, I will stop this. I will continue to follow.
--- NOTE | 2017-03-27 17:47 | PDOC PROGRESS REPORT ---
Subjective Progress Note for:: 03/27/17 Subjective:: No acute distress. Very tired but awake and cooperative. No nausea or vomiting for the last 24 hours. Tolerating liquids. Reason For Visit: ABD PAIN,METASTATIC CA Physical Exam Vital Signs: Temp Pulse Resp BP Pulse Ox 97.5 F 95 16 109/66 97 03/27/17 12:00 03/27/17 12:00 03/27/17 12:00 03/27/17 12:00 03/27/17 12:00 Intake & Output 03/26/17 03/27/17 03/28/17 06:59 06:59 06:59 Intake Total 2634 13 1000 Output Total 450 0 Balance 2184 13 1000 Weight 89.5 kg 89.9 kg General appearance: PRESENT: no acute distress, cooperative, disheveled Respiratory exam: PRESENT: clear to auscultation gayathri Cardiovascular exam: PRESENT: RRR GI/Abdominal exam: PRESENT: other - Mildly distended, mild diffuse abdominal tenderness without peritoneal signs. Bowel sounds heard. Results Laboratory Results: 03/26/17 06:00 03/26/17 06:00 03/25/17 05:20 NT-Pro-B Natriuret Pep 224 H Impressions: Abdomen/Pelvis CT 03/24/17 18:55 IMPRESSION: Interval development of appendiceal dilatation at 1.2 cm. Suspected early appendicitis. Diffuse liver metastases unchanged. Splenic flexure mass unchanged. . Chest X-Ray 03/24/17 18:56 IMPRESSION: NO ACUTE RADIOGRAPHIC FINDING IN THE CHEST. Venous Doppler Study 03/25/17 00:00 IMPRESSION: Findings consistent with deep venous thrombosis in the right lower extremity extending from the level of the common femoral vein to the level of the popliteal vein. No evidence for deep venous thrombosis on the left. Other findings as noted above Assessment & Plan - Diagnosis (1) Metastatic colon cancer to liver Is this a current diagnosis for this admission?: Yes Plan: Patient and desires comfort care. Pending evaluation for in-hospital hospice. Patient is DNR but will continue non-extraordinary supportive care as per family wishes at this time.
--- NOTE | 2017-03-27 20:48 | Palliative Consultation Report ---
Consultation From:: MIGUEL ALLEN Consult Reason: Stage IV colon ca s/p cycle #1 of chemo here w/ N/V, diarrhea - HPI HPI: Palliative Care Consult visit 03/27/17 2:15 PM Appreciate PC consult reruest with this unfortunate 51 year old man who has recently been diagnosed with colon cancer with liver mets, and has undergone one round of chemo to fight this disease. He has been very ill since the chemo on 03/19 and was admitted for dehydration, pain and weakness on 03/24. In addition, he developed diarrhea and abd pain. Yesterday, Mr. Moran developed GI bleeding with his diarrhea. He also had acidosis and was doing very poorly. His was informed that his condition is very serious and he likely could in the next 24 hours. However, he did improve and was moved to the floor for comfort measures. He has been responsive on occasion today and has complained of abd pain. The dilaudid ordered for pain has controlled it well per 's report. At present, Mr. Moran is asleep with no response to verbal or tactile stimuli. His is at bedside with a friend. SHe related the events of the last few days to me and is happy that "he proved them wrong and got better". SHe reports he is eating, nursing reports only a bite or two today. He has had no further GI bleeding but has needed his Dilaudid for pain today. IN discussion of patients condition and needs for the next few days, his tells me she is anxious for him to "get past this cancer and get back to work". I discussed at lenght that patient is very ill with advanced cancer and his prognosis may be for a few days of continued condition as he is now, I could not see that he will ever be "past the cancer and back to work". states she knows he can be, but also is aware that he might get worse again and . We talked about various options for care. Mrs. Moran is disappointed that he is no longer on heart monitor. SHe wants IVs and antibiotics continued in spite of long conversation about how IVs can make him more uncomfortable at this stage. We discussed sending him home with hospice or sending him to hospice care center, but wants him to remain here for conitnued agressinve treatment such as lovenox and IV fluids. Onset: Last week Onset/Duration: Gradual Quality of Pain: Cramping Severity: Moderate Associated Symptoms: Diarrhea, Weakness Exacerbated by: Movement Past Medical History(Consults) - General Information Source: [facility] Records Home Medications: Cyanocobalamin (Vitamin B-12) [Vitamin B-12 1000 mcg Tablet] 1,000 mcg PO DAILY 03/25/17 Furosemide [Lasix 20 mg Tablet] 20 mg PO DAILY 03/25/17 Hydromorphone HCl [Dilaudid 2 mg Tablet] 2 mg PO Q4HP PRN 03/25/17 Multivitamin [One-A-Day Essential] 1 tab PO DAILY 03/25/17 Promethazine HCl [Phenergan 25 mg Tablet] 25 mg PO Q4HP PRN 03/25/17 Allergies/Adverse Reactions: grass pollen Allergy (Verified 03/07/17 15:08) - Social History Lives with: Alone, Spouse/Significant other Family History: Reviewed & Not Pertinent Parental Family History Reviewed: No Children Family History Reviewed: No Sibling(s) Family History Reviewed.: No Smoking Status: Never Smoker Frequency of Alcohol Use: None Hx Recreational Drug Use: No Drugs: None, Ecstasy - no ectasy, error - Past Medical History Cardiac Medical History: Reports: None Denies: Hx Coronary Artery Disease, Hx Heart Attack, Hx Hypertension Pulmonary Medical History: Reports: None Denies: Hx Asthma, Hx Bronchitis, Hx COPD, Hx Pneumonia Neurological Medical History: Denies: Hx Cerebrovascular Accident, Hx Seizures Renal/ Medical History: Denies: Hx Peritoneal Dialysis Malignancy Medical History: Reports Hx Colorectal Cancer Musculoskeltal Medical History: Denies Hx Arthritis Infectious Medical History: Reports: None Hematology: Denies: Anemia - Surgical History Past Surgical History: Reports: Other - Liver biopsy recent, port placement Review of systems ROS unobtainable: due to mental statu - not responding to conversation or verbal stimuli. Gastrointestinal: Abdominal pain Ojective:Exam Vital Signs: Temp Pulse Resp BP Pulse Ox 97.5 F 95 16 109/66 97 03/27/17 12:00 03/27/17 12:00 03/27/17 12:00 03/27/17 12:00 03/27/17 12:00 Intake & Output 03/26/17 03/27/17 03/28/17 06:59 06:59 06:59 Intake Total 2634 13 1000 Output Total 450 0 Balance 2184 13 1000 Weight 89.5 kg 89.9 kg - General General Appearance: Sedated In distress: None - Respiratory Respiratory Status: No respiratory distress - Abdominal Inspection: Normal Objective-Diagnostic Laboratory: 03/26/17 06:00 03/26/17 06:00 03/25/17 05:20 NT-Pro-B Natriuret Pep 224 H Plan and Recommendation Plan and Recommendation: Spoke with patients and friend about his serious cancer and probability that he will not recover, certainly not enough to go back to work. Discussed option of Hospice for care and support but at present, wants patient to remain in hospital, with antibiotics, blood thinners and IV fluids. Will watch fo see what patient does in the next 24 hours. I will talk with her again tomorow to see if she is ready to move patient to hospice care center or take him home, etc. I think friend understands reality of prognosis and may help Mrs. moran get to the point of acceptance. has plans to go to [place] with her daughter when patient dies so she is aware that this is very good possibility. Will continue to talk with her tomorrow. Current medications are controlling symptoms. No changes needed at this time. Will follow. - Time Spent with Patient Time spent with patient: 30 to 40 Minutes Greater then 50% spent on Counseling & Coordination of Care: 35 min
[2017-03-27] MEDS ORDERED: DEXTROSE 5%-1/2 NORMAL SALINE 1,000 ML IV PRN (22:12)
[2017-03-28] MEDS: MEROPENEM 1 GM in NORMAL SALINE 50 ML IV SCH ×3 (05:57→21:28)
[2017-03-28 06:48] LABS: ABSOLUTE LYMPHOCYTES (AUTO) 0.7 10^3/uL (0.5-4.7); ABSOLUTE MONOCYTES (AUTO) 0.8 10^3/uL (0.1-1.4); BASOPHILS % (AUTO) 0.1 % (0-2); RED CELL DISTRIBUTION WIDTH 15.8 % (11.5-14.0)
[2017-03-28 06:53] LABS: ALANINE AMINOTRANSFERASE 158 U/L (21-72); ALBUMIN 2.7 g/dL (3.5-5.0); ALKALINE PHOSPHATASE 365 U/L (38-126); ANION GAP 19 (5-19); ASPARTATE AMINO TRANSFERASE 339 U/L (17-59); BILIRUBIN,DIRECT 1.4 mg/dL (0.0-0.4); BILIRUBIN,TOTAL 1.5 mg/dL (0.2-1.3); BLOOD UREA NITROGEN 75 mg/dL (7-20); CALCIUM 8.3 mg/dL (8.4-10.2); CARBON DIOXIDE 12 mmol/L (22-30); CHLORIDE 100 mmol/L (98-107); GLUCOSE 76 mg/dL (75-110); MAGNESIUM 2.2 mg/dL (1.6-2.3); POTASSIUM 5.6 mmol/L (3.6-5.0); SODIUM 130.9 mmol/L (137-145); TOTAL PROTEIN 5.6 g/dL (6.3-8.2)
[2017-03-28 06:57] LABS: ABSOLUTE NEUT (AUTO) 6.8 10^3/uL (1.7-8.2); HEMATOCRIT 31.7 % (37.9-51.0); HEMOGLOBIN 10.2 g/dL (13.5-17.0); MEAN CORPUSCULAR HEMOGLOBIN 26.2 pg (27.0-33.4); MEAN CORPUSCULAR HGB CONC 32.1 g/dL (32.0-36.0); MEAN CORPUSCULAR VOLUME 82 fl (80-97); MONOCYTES % (AUTO) 10.1 % (3-13); PLATELET COUNT 100 10^3/uL (150-450); RED BLOOD COUNT 3.89 10^6/uL (4.35-5.55); SEGMENTED NEUTROPHILS % (AUTO) 81.8 % (42-78); TOTAL CELLS COUNTED % (AUTO) 100 %; WHITE BLOOD COUNT 8.3 10^3/uL (4.0-10.5)
--- NOTE | 2017-03-28 07:42 | PDOC PROGRESS REPORT ---
Subjective Progress Note for:: 03/28/17 Subjective:: Patient is sleeping peacefully but does respond to both verbal and tactile stimuli. He nods head appropriately to answer questions and is very much aware of his surroundings and the conversations going on. states that family has given him permission to . However, still remains hopeful, since he has improved over the last 48 hours. Reason For Visit: ABD PAIN,METASTATIC CA Physical Exam Vital Signs: Temp Pulse Resp BP Pulse Ox 97.4 F 89 18 106/60 100 03/27/17 20:12 03/27/17 20:12 03/27/17 20:12 03/27/17 20:12 03/27/17 20:12 Intake & Output 03/27/17 03/28/17 03/29/17 06:59 06:59 06:59 Intake Total 13 1600 Output Total 0 0 Balance 13 1600 Weight 89.9 kg 92.4 kg General appearance: PRESENT: thin Exam: Cachectic 51 year old male. is at bedside. Mouth exam: PRESENT: dry mucosa Respiratory exam: PRESENT: unlabored Cardiovascular exam: PRESENT: RRR GI/Abdominal exam: PRESENT: organolmegaly, soft, tenderness Extremities exam: PRESENT: +2 edema - R>L Results Laboratory Results: 03/28/17 06:25 03/28/17 06:28 03/28/17 03/28/17 03/28/17 05:55 05:55 06:25 WBC Cancelled 8.3 RBC Cancelled 3.89 L Hgb Cancelled 10.2 L Hct Cancelled 31.7 L MCV Cancelled 82 D MCH Cancelled 26.2 L MCHC Cancelled 32.1 RDW Cancelled 15.8 H Plt Count Cancelled 100 L Seg Neutrophils % Cancelled 81.8 H Lymphocytes % Cancelled 8.0 L Monocytes % Cancelled 10.1 Eosinophils % Cancelled 0.0 Basophils % Cancelled 0.1 Absolute Neutrophils Cancelled 6.8 Absolute Lymphocytes Cancelled 0.7 Absolute Monocytes Cancelled 0.8 Absolute Eosinophils Cancelled 0.0 Absolute Basophils Cancelled 0.0 Sodium Cancelled Potassium Cancelled Chloride Cancelled Carbon Dioxide Cancelled Anion Gap Cancelled BUN Cancelled Creatinine Cancelled Est GFR ( Amer) Cancelled Est GFR (Non-Af Amer) Cancelled Glucose Cancelled Calcium Cancelled Magnesium Cancelled Total Bilirubin Cancelled AST Cancelled ALT Cancelled Alkaline Phosphatase Cancelled Total Protein Cancelled Albumin Cancelled 03/28/17 06:28 WBC RBC Hgb Hct MCV MCH MCHC RDW Plt Count Seg Neutrophils % Lymphocytes % Monocytes % Eosinophils % Basophils % Absolute Neutrophils Absolute Lymphocytes Absolute Monocytes Absolute Eosinophils Absolute Basophils Sodium 130.9 L Potassium 5.6 H Chloride 100 Carbon Dioxide 12 L Anion Gap 19 BUN 75 H Creatinine 3.94 H Est GFR ( Amer) 20 L Est GFR (Non-Af Amer) 16 L Glucose 76 Calcium 8.3 L Magnesium 2.2 Total Bilirubin 1.5 H AST 339 H ALT 158 H Alkaline Phosphatase 365 H Total Protein 5.6 L Albumin 2.7 L 03/25/17 05:20 NT-Pro-B Natriuret Pep 224 H Impressions: Abdomen/Pelvis CT 03/24/17 18:55 IMPRESSION: Interval development of appendiceal dilatation at 1.2 cm. Suspected early appendicitis. Diffuse liver metastases unchanged. Splenic flexure mass unchanged. . Chest X-Ray 03/24/17 18:56 IMPRESSION: NO ACUTE RADIOGRAPHIC FINDING IN THE CHEST. Venous Doppler Study 03/25/17 00:00 IMPRESSION: Findings consistent with deep venous thrombosis in the right lower extremity extending from the level of the common femoral vein to the level of the popliteal vein. No evidence for deep venous thrombosis on the left. Other findings as noted above Assessment & Plan - Diagnosis (1) Metastatic colon cancer to liver Is this a current diagnosis for this admission?: Yes Plan: Has only received 1 cycle of chemotherapy. This has caused pancytopenia and possibly bleeding. (2) Appendicitis Qualifiers: Appendicitis type: unspecified Qualified Code(s): K37 - Unspecified appendicitis Plan: per CT scan. However, patient has been too ill to consider any surgery at this point. He remains on IV antibiotics. (3) DVT (deep venous thrombosis) Qualifiers: DVT location: lower extremity Affected thrombotic vein of extremity: femoral Chronicity: acute Laterality: right Qualified Code(s): I82.411 - Acute embolism and thrombosis of right femoral vein Is this a current diagnosis for this admission?: Yes Plan: Lovenox on hold due to GI bleeding. - Plan Summary Plan Summary: Patient remains on comfort measures only. However, since he is improving, it may be worth repeating labs to see if we can improve his quality of life enough to go home with Hospice. His MIVF are again not connected. He has had very little urine output in the last 24 hours. Consider Mock Cath or at least bladder scan to make sure he is not retaining urine. It is very difficult to say how much he will be able to recover from this chemo, or if he is actually eminent. Will continue to follow.
[2017-03-28] MEDS ORDERED: NORMAL SALINE 500 ML with CHLORPROMAZINE HCL 25 MG IM PRN ×4 (08:57→12:01)
[2017-03-28] MEDS ORDERED: LORAZEPAM INJ 2 MG/1 ML VIAL IV PRN (09:03)
[2017-03-28] MEDS ORDERED: NORMAL SALINE 500 ML with CHLORPROMAZINE HCL 25 MG IV PRN ×4 (10:00→12:00)
[2017-03-28] MEDS ORDERED: DEXTROSE 5%-NORMAL SALINE 1,000 ML IV PRN (11:56)
--- NOTE | 2017-03-28 11:56 | PDOC PROGRESS REPORT ---
Subjective Progress Note for:: 03/28/17 Subjective:: Patient is seen on rounds for follow-up. He is resting in bed but does wake upon my entering and says hello. He quickly falls back to sleep and does not participate any further in conversation despite attempts to wake him. He does appear to be in some discomfort as he is groaning and moving/repositioning frequently. The patient's and a close family friend are present. We have a long discussion regarding the patient's apparent improvement yesterday with slightly worsened clinical condition today, lab results, risks/benefits of continuing IV fluids, antibiotics, medical interventions. At this time, the states that she understands that the patient "is terminal " but does wish to continue antibiotics and IV fluids. She is hopeful that he will be able to wake when her daughter arrived this afternoon to say goodbye. Afterwards, she is hopeful that he will "pass quickly and peacefully" but does not feel that withholding antibiotics or fluids at this time would be in line with the patient's end-of-life wishes. She is appropriately tearful and does appear to understand the gravity of the patient's condition and likely eminent . She is encouraged to reach out to nursing staff, palliative care, and hospitalist service to answer any further questions as they arise. Reason For Visit: ABD PAIN,METASTATIC CA Physical Exam Vital Signs: Temp Pulse Resp BP Pulse Ox 97.4 F 89 18 106/60 100 03/27/17 20:12 03/27/17 20:12 03/27/17 20:12 03/27/17 20:12 03/27/17 20:12 Intake & Output 03/27/17 03/28/17 03/29/17 06:59 06:59 06:59 Intake Total 13 1600 Output Total 0 0 Balance 13 1600 Weight 89.9 kg 92.4 kg General appearance: PRESENT: mild distress, well-developed, other - Anasarca. ABSENT: well-nourished Head exam: PRESENT: atraumatic, normocephalic Eye exam: PRESENT: conjunctiva pink, EOMI, PERRLA. ABSENT: scleral icterus Ear exam: PRESENT: normal external ear exam Mouth exam: PRESENT: moist, tongue midline Neck exam: ABSENT: carotid bruit, JVD, lymphadenopathy, thyromegaly Respiratory exam: PRESENT: decreased breath sounds - Diminished throughout, absent right lower field, tachypnea, other - Wet/gurgling sounds secondary to excessive secretions. ABSENT: rales, rhonchi, symmetrical, unlabored, wheezes Cardiovascular exam: PRESENT: RRR. ABSENT: diastolic murmur, rubs, systolic murmur Pulses: PRESENT: normal dorsalis pedis pul Vascular exam: PRESENT: other - Mottling noted to bilateral lower extremities beginning mid lower leg extending distally GI/Abdominal exam: PRESENT: ascites, hypoactive bowel sounds, soft, tenderness. ABSENT: distended, guarding, mass, organolmegaly, rebound Rectal exam: PRESENT: deferred Extremities exam: PRESENT: full ROM, +1 edema - Bilateral upper extremities, +2 edema - Bilateral lower extremities. ABSENT: calf tenderness, clubbing, pedal edema Neurological exam: PRESENT: oriented to person, other - Arousable, oriented to person. Psychiatric exam: ABSENT: homicidal ideation, suicidal ideation Skin exam: PRESENT: dry, intact, mottled, warm. ABSENT: cyanosis, rash Results Laboratory Results: 03/28/17 06:25 03/28/17 06:28 03/28/17 03/28/17 03/28/17 05:55 05:55 06:25 WBC Cancelled 8.3 RBC Cancelled 3.89 L Hgb Cancelled 10.2 L Hct Cancelled 31.7 L MCV Cancelled 82 D MCH Cancelled 26.2 L MCHC Cancelled 32.1 RDW Cancelled 15.8 H Plt Count Cancelled 100 L Seg Neutrophils % Cancelled 81.8 H Lymphocytes % Cancelled 8.0 L Monocytes % Cancelled 10.1 Eosinophils % Cancelled 0.0 Basophils % Cancelled 0.1 Absolute Neutrophils Cancelled 6.8 Absolute Lymphocytes Cancelled 0.7 Absolute Monocytes Cancelled 0.8 Absolute Eosinophils Cancelled 0.0 Absolute Basophils Cancelled 0.0 Sodium Cancelled Potassium Cancelled Chloride Cancelled Carbon Dioxide Cancelled Anion Gap Cancelled BUN Cancelled Creatinine Cancelled Est GFR ( Amer) Cancelled Est GFR (Non-Af Amer) Cancelled Glucose Cancelled Calcium Cancelled Magnesium Cancelled Total Bilirubin Cancelled AST Cancelled ALT Cancelled Alkaline Phosphatase Cancelled Total Protein Cancelled Albumin Cancelled 03/28/17 06:28 WBC RBC Hgb Hct MCV MCH MCHC RDW Plt Count Seg Neutrophils % Lymphocytes % Monocytes % Eosinophils % Basophils % Absolute Neutrophils Absolute Lymphocytes Absolute Monocytes Absolute Eosinophils Absolute Basophils Sodium 130.9 L Potassium 5.6 H Chloride 100 Carbon Dioxide 12 L Anion Gap 19 BUN 75 H Creatinine 3.94 H Est GFR ( Amer) 20 L Est GFR (Non-Af Amer) 16 L Glucose 76 Calcium 8.3 L Magnesium 2.2 Total Bilirubin 1.5 H AST 339 H ALT 158 H Alkaline Phosphatase 365 H Total Protein 5.6 L Albumin 2.7 L 03/25/17 05:20 NT-Pro-B Natriuret Pep 224 H Impressions: Abdomen/Pelvis CT 03/24/17 18:55 IMPRESSION: Interval development of appendiceal dilatation at 1.2 cm. Suspected early appendicitis. Diffuse liver metastases unchanged. Splenic flexure mass unchanged. . Chest X-Ray 03/24/17 18:56 IMPRESSION: NO ACUTE RADIOGRAPHIC FINDING IN THE CHEST. Venous Doppler Study 03/25/17 00:00 IMPRESSION: Findings consistent with deep venous thrombosis in the right lower extremity extending from the level of the common femoral vein to the level of the popliteal vein. No evidence for deep venous thrombosis on the left. Other findings as noted above Assessment & Plan - Diagnosis (1) Acute renal failure Is this a current diagnosis for this admission?: Yes Plan: Acute renal failure as evidenced by creatinine of 3.94, up from 1.4 hours previously. Baseline appears to be 0.6. The patient has had no urinary output for greater than 36 hours. The renal failure is likely intrinsic in nature as part of the active dying process. There is also a prerenal component related to intravascular volume depletion, however, I do not feel that the patient would have any meaningful benefit from increased IVF as he has anasarca, absent RLL lung sounds (? Pleural effusion), and mottling to bilateral lower extremities evidencing an active dying process. Will ask nursing to check a bladder scan and place Mock for greater than 150 mL. At this time, I do not feel that further evaluation with a renal ultrasound is warranted given the patient's overall health status and likely eminent secondary to his metastatic cancer. (2) Bacteremia Is this a current diagnosis for this admission?: Yes Plan: Blood cultures are positive for Klebsiella oxytoca; the patient is appropriately covered with meropenem. He is currently on day 2 of this therapy. Previously, he received PIP/Tazo x2 days which was also an appropriate choice given sensitivity results. I did discuss with the patient's today the futility of continuing antibiotic therapy. She is resistant to discontinuing antibiotics at this time as she feels that it is counter to her 's likely wishes. (3) DVT (deep venous thrombosis) Qualifiers: DVT location: lower extremity Affected thrombotic vein of extremity: femoral Chronicity: acute Laterality: right Qualified Code(s): I82.411 - Acute embolism and thrombosis of right femoral vein Is this a current diagnosis for this admission?: Yes Plan: Lovenox was discontinued secondary to active GI bleeding. (4) Metastatic colon cancer to liver Is this a current diagnosis for this admission?: Yes Plan: Stage IV colon cancer with liver metastases causing a partial colonic obstruction. Appreciate oncology's consultation and recommendation. Appreciate surgery's consultation and recommendations. At this time, I believe that the patient may be actively dying as he evidences anasarca, mottling of the lower extremities, diminished breath sounds with an irregular respiratory rate, and worsening electrolyte status, LFTs, and kidney function by labs this morning. A long discussion was had with the patient's and her close family friend regarding end-of-life care, futility of aggressive workup and medication management, and care. The explicitly states that she wishes to continue IV fluids and antibiotic therapy, but does not wish to do further testing or treatments as her primary goal is to "give him the best chance I can without hurting him in the process." (5) Sepsis Is this a current diagnosis for this admission?: Yes Plan: Secondary to #1 (6) Metabolic acidosis Is this a current diagnosis for this admission?: Yes Plan: Slight improvement in bicarb noted overnight with initiation of IV fluids. However, patient now with hyperkalemia and significantly worsened renal function. Lactic acid on 03/06/17: 13.8. This may be reflective of sepsis related to Klebsiella infection versus multi-organ failure directly related to metastatic cancers. (7) Hyperkalemia Is this a current diagnosis for this admission?: Yes Plan: Calcium of 5.6 this morning related to renal failure and GI bleed. At this time, the patient is not tolerating p.o. and so Kayexalate is contraindicated. Some consideration was given to providing furosemide, however , secondary to the patient's kidney function do not believe that this would be an appropriate measure. Overall, I believe the patient to be actively dying with imminent and the elevated potassium reflects this. Do not believe that attempts to correct this with dextrose/insulin would have long-term or meaningful benefit to the patient and likely send an incorrect message to the patient's family that he is viable. (8) Hyponatremia Is this a current diagnosis for this admission?: Yes Plan: Secondary to intravascular volume depletion. The patient was placed on D5-1/2 NS yesterday; will adjust IV fluids. As the spouse recognizes the terminal nature of the patient, however, continues to request IV antibiotics and fluids, I will continue IV fluids at [facility]. Further , this will maintain access to the patient's port so that as needed medications can be provided for comfort. - Time Time Spent with patient: 35 or more minutes Medications reviewed and adjusted accordingly: Yes
--- NOTE | 2017-03-28 12:44 | PDOC PROGRESS REPORT ---
Subjective Progress Note for:: 03/28/17 Subjective:: barely responsive but can communicate with patient. Pts daughter driving today from [place]. Reason For Visit: ABD PAIN,METASTATIC CA Physical Exam Vital Signs: Temp Pulse Resp BP Pulse Ox 97.4 F 89 18 106/60 100 03/27/17 20:12 03/27/17 20:12 03/27/17 20:12 03/27/17 20:12 03/27/17 20:12 Intake & Output 03/27/17 03/28/17 03/29/17 06:59 06:59 06:59 Intake Total 13 1600 Output Total 0 0 Balance 13 1600 Weight 89.9 kg 92.4 kg Exam: Patient is lethargic but more alert today according to the . Patient apparently woke up when told his daughter is coming today. is aware of pt. on comfort care. Results Laboratory Results: 03/28/17 06:25 03/28/17 06:28 03/28/17 03/28/17 03/28/17 05:55 05:55 06:25 WBC Cancelled 8.3 RBC Cancelled 3.89 L Hgb Cancelled 10.2 L Hct Cancelled 31.7 L MCV Cancelled 82 D MCH Cancelled 26.2 L MCHC Cancelled 32.1 RDW Cancelled 15.8 H Plt Count Cancelled 100 L Seg Neutrophils % Cancelled 81.8 H Lymphocytes % Cancelled 8.0 L Monocytes % Cancelled 10.1 Eosinophils % Cancelled 0.0 Basophils % Cancelled 0.1 Absolute Neutrophils Cancelled 6.8 Absolute Lymphocytes Cancelled 0.7 Absolute Monocytes Cancelled 0.8 Absolute Eosinophils Cancelled 0.0 Absolute Basophils Cancelled 0.0 Sodium Cancelled Potassium Cancelled Chloride Cancelled Carbon Dioxide Cancelled Anion Gap Cancelled BUN Cancelled Creatinine Cancelled Est GFR ( Amer) Cancelled Est GFR (Non-Af Amer) Cancelled Glucose Cancelled Calcium Cancelled Magnesium Cancelled Total Bilirubin Cancelled AST Cancelled ALT Cancelled Alkaline Phosphatase Cancelled Total Protein Cancelled Albumin Cancelled 03/28/17 06:28 WBC RBC Hgb Hct MCV MCH MCHC RDW Plt Count Seg Neutrophils % Lymphocytes % Monocytes % Eosinophils % Basophils % Absolute Neutrophils Absolute Lymphocytes Absolute Monocytes Absolute Eosinophils Absolute Basophils Sodium 130.9 L Potassium 5.6 H Chloride 100 Carbon Dioxide 12 L Anion Gap 19 BUN 75 H Creatinine 3.94 H Est GFR ( Amer) 20 L Est GFR (Non-Af Amer) 16 L Glucose 76 Calcium 8.3 L Magnesium 2.2 Total Bilirubin 1.5 H AST 339 H ALT 158 H Alkaline Phosphatase 365 H Total Protein 5.6 L Albumin 2.7 L 03/25/17 05:20 NT-Pro-B Natriuret Pep 224 H Impressions: Abdomen/Pelvis CT 03/24/17 18:55 IMPRESSION: Interval development of appendiceal dilatation at 1.2 cm. Suspected early appendicitis. Diffuse liver metastases unchanged. Splenic flexure mass unchanged. . Chest X-Ray 03/24/17 18:56 IMPRESSION: NO ACUTE RADIOGRAPHIC FINDING IN THE CHEST. Venous Doppler Study 03/25/17 00:00 IMPRESSION: Findings consistent with deep venous thrombosis in the right lower extremity extending from the level of the common femoral vein to the level of the popliteal vein. No evidence for deep venous thrombosis on the left. Other findings as noted above Assessment & Plan - Time Time Spent with patient: 15-24 minutes - Plan Summary Plan Summary: Continue IV Fluids today Start anti hiccup med-Thorazine Continue comfort care.
[2017-03-28] MEDS: ATROPINE SULFATE 1% OPH SOLN 5 ML BOTTLE SL SCH ×2 (14:42→21:28)
--- NOTE | 2017-03-28 23:01 | Progress Note ---
Provider Note Provider Note: Palliative care follow up visit 03/28/17 1:20- 1;35 pm Follow up visit with this man who is dying with colon cancer and his who has not left his side since admission. at my last visit, was very unrealistic about patients prognosis and was hoping for recovery. SHe was angry about comfort care and stopping of monitors, some medications and other treatments which were discontinued. Today, she is very realistic about his condition and more at peace witht he reality of her loss and grief. The nathaniel daughter has driven here from [place] over the last few days. She is due to arrive in thirty minutes. mrs. luna knows the patient is moaning and frowning, but she doesnt want him to have pain meds because he wanted to see the daughter when she comes. Mrs. Luna said if he gets comfortable he will go to sleep and maybe never awaken. Patient is in bed with some frowning and occasional moan, but no expression of severe pain. He is breathing easily but upper airway congestion is audible. He has some discoloration of fingertips. Pulse is regular and strong. He is able to move in the bed independently. discussed their relationship and cried when she talked about marrying him until " do us part". Although tearful, she is obviously more realistic today and grieving appropriately. Her friend is with her and she is glad her daughter is coming to be with her . agrees to ask nurse to give pain meds after he is able to say hello to their daughter. No apparent need for chenge in meds or new symptoms. Appreciate the gentle care being given to both patient and his .
[2017-03-29] MEDS: ATROPINE SULFATE 1% OPH SOLN 5 ML BOTTLE SL SCH ×3 (05:42→22:19)
[2017-03-29] MEDS: MEROPENEM 1 GM in NORMAL SALINE 50 ML IV SCH ×3 (05:42→22:20)
--- NOTE | 2017-03-29 11:41 | PDOC PROGRESS REPORT ---
Subjective Progress Note for:: 03/29/17 Subjective:: Patient was able to eat a little bit today, sat up in the bed, was able to say hello to me, does not seem to be in pain. Seems to be comfortable. Reason For Visit: ABD PAIN,METASTATIC CA Physical Exam Vital Signs: Temp Pulse Resp BP Pulse Ox 97.8 F 103 H 20 103/61 100 03/28/17 20:00 03/28/17 20:00 03/28/17 20:00 03/28/17 20:00 03/28/17 20:00 Intake & Output 03/28/17 03/29/17 03/30/17 06:59 06:59 06:59 Intake Total 1600 425 Output Total 0 Balance 1600 425 Weight 92.4 kg 90.9 kg General appearance: PRESENT: no acute distress, well-developed, well-nourished Head exam: PRESENT: atraumatic, normocephalic Eye exam: PRESENT: conjunctiva pink, EOMI, PERRLA. ABSENT: scleral icterus Ear exam: PRESENT: normal external ear exam Mouth exam: PRESENT: moist, tongue midline Neck exam: ABSENT: carotid bruit, JVD, lymphadenopathy, thyromegaly Respiratory exam: PRESENT: clear to auscultation gayathri. ABSENT: rales, rhonchi, wheezes Cardiovascular exam: PRESENT: RRR. ABSENT: diastolic murmur, rubs, systolic murmur Pulses: PRESENT: normal dorsalis pedis pul Vascular exam: PRESENT: normal capillary refill GI/Abdominal exam: PRESENT: normal bowel sounds, soft. ABSENT: distended, guarding, mass, organolmegaly, rebound, tenderness Rectal exam: PRESENT: deferred Extremities exam: PRESENT: full ROM. ABSENT: calf tenderness, clubbing, pedal edema Neurological exam: PRESENT: alert, awake, oriented to person, oriented to place , oriented to time, oriented to situation, CN II-XII grossly intact. ABSENT: motor sensory deficit Psychiatric exam: PRESENT: appropriate affect, normal mood. ABSENT: homicidal ideation, suicidal ideation Skin exam: PRESENT: dry, intact, warm. ABSENT: cyanosis, rash Results Laboratory Results: 03/28/17 06:25 03/28/17 06:28 03/25/17 05:20 NT-Pro-B Natriuret Pep 224 H Impressions: Abdomen/Pelvis CT 03/24/17 18:55 IMPRESSION: Interval development of appendiceal dilatation at 1.2 cm. Suspected early appendicitis. Diffuse liver metastases unchanged. Splenic flexure mass unchanged. . Chest X-Ray 03/24/17 18:56 IMPRESSION: NO ACUTE RADIOGRAPHIC FINDING IN THE CHEST. Venous Doppler Study 03/25/17 00:00 IMPRESSION: Findings consistent with deep venous thrombosis in the right lower extremity extending from the level of the common femoral vein to the level of the popliteal vein. No evidence for deep venous thrombosis on the left. Other findings as noted above Assessment & Plan - Diagnosis (1) Dehydration Is this a current diagnosis for this admission?: Yes Plan: Continued fluids (2) Edema, lower extremity Is this a current diagnosis for this admission?: Yes (3) Metastatic colon cancer to liver Is this a current diagnosis for this admission?: Yes Plan: Patient mostly being kept comfortable at present, seeing how patient will do over the next 24-48 hours. (4) DVT (deep venous thrombosis) Qualifiers: DVT location: lower extremity Affected thrombotic vein of extremity: femoral Chronicity: acute Laterality: right Qualified Code(s): I82.411 - Acute embolism and thrombosis of right femoral vein Is this a current diagnosis for this admission?: Yes Plan: Anticoagulation discontinued because of previous bleeding, no further endocoagulation planned. - Time Time Spent with patient: 35 or more minutes - Inpatient Certification Based on my medical assessment, after consideration of the patient's comorbidities, presenting symptoms, or acuity I expect that the services needed warrant INPATIENT care.: Yes I certify that my determination is in accordance with my understanding of Medicare's requirements for reasonable and necessary INPATIENT services [42 CFR 412.3e].: Yes Medical Necessity: Need For IV Fluids, Need for IV Antibiotics
[2017-03-29] MEDS: HYDROMORPHONE HCL INJ/PF 2 MG/ML AMPULE IV PRN (11:44)
--- NOTE | 2017-03-29 13:59 | PDOC PROGRESS REPORT ---
Subjective Progress Note for:: 03/29/17 Subjective:: More awake earlier today. Now sleeping Reason For Visit: ABD PAIN,METASTATIC CA Physical Exam Vital Signs: Temp Pulse Resp BP Pulse Ox 97.6 F 103 H 20 104/50 L 94 03/29/17 11:57 03/29/17 11:57 03/29/17 11:57 03/29/17 11:57 03/29/17 11:57 Intake & Output 03/28/17 03/29/17 03/30/17 06:59 06:59 06:59 Intake Total 1600 425 Output Total 0 Balance 1600 425 Weight 92.4 kg 90.9 kg Exam: Sleeping soundly. Not responding to name calling Apparently ate some this am. Abd is soft nontender Results Laboratory Results: 03/28/17 06:25 03/28/17 06:28 03/25/17 05:20 NT-Pro-B Natriuret Pep 224 H Impressions: Abdomen/Pelvis CT 03/24/17 18:55 IMPRESSION: Interval development of appendiceal dilatation at 1.2 cm. Suspected early appendicitis. Diffuse liver metastases unchanged. Splenic flexure mass unchanged. . Chest X-Ray 03/24/17 18:56 IMPRESSION: NO ACUTE RADIOGRAPHIC FINDING IN THE CHEST. Venous Doppler Study 03/25/17 00:00 IMPRESSION: Findings consistent with deep venous thrombosis in the right lower extremity extending from the level of the common femoral vein to the level of the popliteal vein. No evidence for deep venous thrombosis on the left. Other findings as noted above Assessment & Plan - Time Time Spent with patient: 15-24 minutes - Plan Summary Plan Summary: On comfort care.
--- NOTE | 2017-03-29 14:59 | PDOC PROGRESS REPORT ---
Subjective Progress Note for:: 03/29/17 Subjective:: Patient denies pain. relates that patient stood up and brushed his teeth and ate a little bit of grits Reason For Visit: ABD PAIN,METASTATIC CA Physical Exam Vital Signs: Temp Pulse Resp BP Pulse Ox 97.6 F 103 H 20 104/50 L 94 03/29/17 11:57 03/29/17 11:57 03/29/17 11:57 03/29/17 11:57 03/29/17 11:57 Intake & Output 03/28/17 03/29/17 03/30/17 06:59 06:59 06:59 Intake Total 1600 425 Output Total 0 Balance 1600 425 Weight 92.4 kg 90.9 kg General appearance: PRESENT: cooperative, other - chronically ill looking Head exam: PRESENT: atraumatic, normocephalic Eye exam: PRESENT: EOMI, PERRLA Ear exam: PRESENT: normal external ear exam Mouth exam: PRESENT: moist, neck supple Neck exam: PRESENT: full ROM. ABSENT: JVD Respiratory exam: PRESENT: clear to auscultation gayathri Cardiovascular exam: PRESENT: RRR. ABSENT: diastolic murmur, systolic murmur GI/Abdominal exam: PRESENT: normal bowel sounds, other - .This tender and tender throughout Extremities exam: PRESENT: other - 4+ pitting edema in right lower extremity and 3+ pitting edema of left lower extremity Neurological exam: PRESENT: other - Somnolent Psychiatric exam: PRESENT: flat affect Results Laboratory Results: 03/28/17 06:25 03/28/17 06:28 03/25/17 05:20 NT-Pro-B Natriuret Pep 224 H Impressions: Abdomen/Pelvis CT 03/24/17 18:55 IMPRESSION: Interval development of appendiceal dilatation at 1.2 cm. Suspected early appendicitis. Diffuse liver metastases unchanged. Splenic flexure mass unchanged. . Chest X-Ray 03/24/17 18:56 IMPRESSION: NO ACUTE RADIOGRAPHIC FINDING IN THE CHEST. Venous Doppler Study 03/25/17 00:00 IMPRESSION: Findings consistent with deep venous thrombosis in the right lower extremity extending from the level of the common femoral vein to the level of the popliteal vein. No evidence for deep venous thrombosis on the left. Other findings as noted above Assessment & Plan - Diagnosis (1) Acute renal failure Qualifiers: Acute renal failure type: unspecified Qualified Code(s): N17.9 - Acute kidney failure, unspecified Is this a current diagnosis for this admission?: Yes Plan: Due to volume contraction (2) Bacteremia Is this a current diagnosis for this admission?: Yes Plan: Continue present management (3) DVT (deep venous thrombosis) Qualifiers: DVT location: lower extremity Affected thrombotic vein of extremity: femoral Chronicity: acute Laterality: right Qualified Code(s): I82.411 - Acute embolism and thrombosis of right femoral vein Is this a current diagnosis for this admission?: Yes Plan: Supportive care (4) Dehydration Is this a current diagnosis for this admission?: Yes Plan: Gentle hydration (5) Hyponatremia Is this a current diagnosis for this admission?: Yes Plan: Due to volume contraction (6) Metastatic colon cancer to liver Is this a current diagnosis for this admission?: Yes Plan: When talking to the she still has some hope that he will improve. Patient just lay on the bed very stoic and does not complain of pain even though on auscultation is evident that he is in pain - Time Time Spent with patient: 15-24 minutes Medications reviewed and adjusted accordingly: Yes Anticipated discharge: Other - Ideally hospice Within: within 72 hours - Inpatient Certification Based on my medical assessment, after consideration of the patient's comorbidities, presenting symptoms, or acuity I expect that the services needed warrant INPATIENT care.: Yes I certify that my determination is in accordance with my understanding of Medicare's requirements for reasonable and necessary INPATIENT services [42 CFR 412.3e].: Yes Medical Necessity: Need for IV Antibiotics
[2017-03-30] MEDS: MEROPENEM 1 GM in NORMAL SALINE 50 ML IV SCH ×3 (05:34→21:27)
[2017-03-30] MEDS: ATROPINE SULFATE 1% OPH SOLN 5 ML BOTTLE SL SCH ×3 (08:35→21:27)
[2017-03-30] MEDS: SCOPOLAMINE HYDROBROMIDE 1.5 MG PATCH.TD72 TD SCH (11:01)
[2017-03-30] MEDS: FENTANYL 25 MCG/HR PATCH.TD72 TD SCH (11:02)
--- NOTE | 2017-03-30 14:44 | PDOC PROGRESS REPORT ---
Subjective Progress Note for:: 03/30/17 Subjective:: Still c/o abdominal pains Able to eat some oranges and drink water. Reason For Visit: ABD PAIN,METASTATIC CA Physical Exam Vital Signs: Temp Pulse Resp BP Pulse Ox 97.4 F 98 18 107/62 93 03/30/17 07:17 03/30/17 07:17 03/30/17 07:17 03/30/17 07:17 03/30/17 07:17 Intake & Output 03/29/17 03/30/17 03/31/17 06:59 06:59 06:59 Intake Total 425 2900 Balance 425 2900 Weight 90.9 kg 90.9 kg Exam: sitting at edge of bed. More awake. Abdomen slightly firm with mild diffuse tenderness. Results Laboratory Results: 03/28/17 06:25 03/28/17 06:28 03/24/17 23:40 Blood Blood Culture - Final NO GROWTH IN 5 DAYS 03/25/17 05:20 NT-Pro-B Natriuret Pep 224 H Impressions: Abdomen/Pelvis CT 03/24/17 18:55 IMPRESSION: Interval development of appendiceal dilatation at 1.2 cm. Suspected early appendicitis. Diffuse liver metastases unchanged. Splenic flexure mass unchanged. . Chest X-Ray 03/24/17 18:56 IMPRESSION: NO ACUTE RADIOGRAPHIC FINDING IN THE CHEST. Venous Doppler Study 03/25/17 00:00 IMPRESSION: Findings consistent with deep venous thrombosis in the right lower extremity extending from the level of the common femoral vein to the level of the popliteal vein. No evidence for deep venous thrombosis on the left. Other findings as noted above Assessment & Plan - Time Time Spent with patient: 15-24 minutes - Plan Summary Plan Summary: D/W Dr Kilgore. Agree with hospice care. Will transfer to medical service since he is on comfort care.
--- NOTE | 2017-03-30 15:20 | PDOC PROGRESS REPORT ---
Subjective Progress Note for:: 03/30/17 Subjective:: Patient complains of pain in his stomach. relates that patient stood up again. Reason For Visit: ABD PAIN,METASTATIC CA Physical Exam Vital Signs: Temp Pulse Resp BP Pulse Ox 97.6 F 93 11 L 103/63 100 03/29/17 20:57 03/29/17 20:57 03/29/17 20:57 03/29/17 20:57 03/29/17 20:57 Intake & Output 03/29/17 03/30/17 03/31/17 06:59 06:59 06:59 Intake Total 425 2900 Balance 425 2900 Weight 90.9 kg 90.9 kg General appearance: PRESENT: cooperative, other - apears to be in pain Head exam: PRESENT: atraumatic, normocephalic Eye exam: PRESENT: EOMI, PERRLA Ear exam: PRESENT: normal external ear exam Respiratory exam: PRESENT: clear to auscultation gayathri Cardiovascular exam: PRESENT: RRR. ABSENT: diastolic murmur, systolic murmur GI/Abdominal exam: PRESENT: ascites, distended, guarding, hypoactive bowel sounds - Bilateral leg swelling being right more swollen than the left, tenderness Neurological exam: PRESENT: alert, CN II-XII grossly intact Psychiatric exam: PRESENT: depressed Results Laboratory Results: 03/28/17 06:25 03/28/17 06:28 03/24/17 23:40 Blood Blood Culture - Final NO GROWTH IN 5 DAYS 03/25/17 05:20 NT-Pro-B Natriuret Pep 224 H Impressions: Abdomen/Pelvis CT 03/24/17 18:55 IMPRESSION: Interval development of appendiceal dilatation at 1.2 cm. Suspected early appendicitis. Diffuse liver metastases unchanged. Splenic flexure mass unchanged. . Chest X-Ray 03/24/17 18:56 IMPRESSION: NO ACUTE RADIOGRAPHIC FINDING IN THE CHEST. Venous Doppler Study 03/25/17 00:00 IMPRESSION: Findings consistent with deep venous thrombosis in the right lower extremity extending from the level of the common femoral vein to the level of the popliteal vein. No evidence for deep venous thrombosis on the left. Other findings as noted above Assessment & Plan - Diagnosis (1) Acute renal failure Qualifiers: Acute renal failure type: unspecified Qualified Code(s): N17.9 - Acute kidney failure, unspecified Is this a current diagnosis for this admission?: Yes Plan: Due to volume contraction (2) Bacteremia Is this a current diagnosis for this admission?: Yes Plan: Continue present management (3) DVT (deep venous thrombosis) Qualifiers: DVT location: lower extremity Affected thrombotic vein of extremity: femoral Chronicity: acute Laterality: right Qualified Code(s): I82.411 - Acute embolism and thrombosis of right femoral vein Is this a current diagnosis for this admission?: Yes Plan: Supportive care (4) Dehydration Is this a current diagnosis for this admission?: Yes Plan: Gentle hydration (5) Hyponatremia Is this a current diagnosis for this admission?: Yes Plan: Due to volume contraction (6) Metastatic colon cancer to liver Is this a current diagnosis for this admission?: Yes Plan: Add fentanyl and scopolamine patch. Surgical team requested for patient to be under our service since not a surgical candidate and in agreement - Time Time Spent with patient: 15-24 minutes Medications reviewed and adjusted accordingly: Yes Anticipated discharge: Hospice Within: within 72 hours - Inpatient Certification Based on my medical assessment, after consideration of the patient's comorbidities, presenting symptoms, or acuity I expect that the services needed warrant INPATIENT care.: Yes I certify that my determination is in accordance with my understanding of Medicare's requirements for reasonable and necessary INPATIENT services [42 CFR 412.3e].: Yes Medical Necessity: Need for Pain Control, Need for IV Antibiotics
[2017-03-31] MEDS: PROMETHAZINE HCL INJ 25 MG/1 ML VIAL IV PRN (00:57)
[2017-03-31] MEDS: ATROPINE SULFATE 1% OPH SOLN 5 ML BOTTLE SL SCH ×3 (05:30→21:45)
[2017-03-31] MEDS: MEROPENEM 1 GM in NORMAL SALINE 50 ML IV SCH (05:32)
--- NOTE | 2017-03-31 13:04 | PDOC PROGRESS REPORT ---
Subjective Progress Note for:: 03/31/17 Subjective:: Unable to obtain since sedated. to bedside and stated that he had an orange yesterday. Also passed some urine today. Reason For Visit: ABD PAIN,METASTATIC CA Physical Exam Vital Signs: Temp Pulse Resp BP Pulse Ox 97.5 F 99 17 109/64 100 03/30/17 20:24 03/30/17 20:24 03/30/17 20:24 03/30/17 20:24 03/30/17 20:24 Intake & Output 03/30/17 03/31/17 04/01/17 06:59 06:59 06:59 Intake Total 2900 1307 Output Total 438 Balance 2900 869 Weight 90.9 kg General appearance: PRESENT: no acute distress, other - sedated Head exam: PRESENT: atraumatic, normocephalic Eye exam: PRESENT: EOMI, PERRLA Ear exam: PRESENT: normal external ear exam Mouth exam: PRESENT: moist Neck exam: PRESENT: full ROM. ABSENT: JVD, tenderness Respiratory exam: PRESENT: clear to auscultation gayathri Cardiovascular exam: PRESENT: RRR. ABSENT: diastolic murmur, systolic murmur Vascular exam: PRESENT: normal capillary refill GI/Abdominal exam: PRESENT: guarding, hypoactive bowel sounds, tenderness Extremities exam: ABSENT: joint swelling, pedal edema Neurological exam: PRESENT: other - sedated Results Laboratory Results: 03/28/17 06:25 03/28/17 06:28 03/25/17 05:20 NT-Pro-B Natriuret Pep 224 H Impressions: Abdomen/Pelvis CT 03/24/17 18:55 IMPRESSION: Interval development of appendiceal dilatation at 1.2 cm. Suspected early appendicitis. Diffuse liver metastases unchanged. Splenic flexure mass unchanged. . Chest X-Ray 03/24/17 18:56 IMPRESSION: NO ACUTE RADIOGRAPHIC FINDING IN THE CHEST. Venous Doppler Study 03/25/17 00:00 IMPRESSION: Findings consistent with deep venous thrombosis in the right lower extremity extending from the level of the common femoral vein to the level of the popliteal vein. No evidence for deep venous thrombosis on the left. Other findings as noted above Assessment & Plan - Diagnosis (1) Acute renal failure Qualifiers: Acute renal failure type: unspecified Qualified Code(s): N17.9 - Acute kidney failure, unspecified Is this a current diagnosis for this admission?: Yes Plan: Due to volume contraction. wishes continuation of fluids. (2) Bacteremia Is this a current diagnosis for this admission?: Yes Plan: Due to Klebsiella oxytoca. To discontinue meropenem and change to Rocephin (3) DVT (deep venous thrombosis) Qualifiers: DVT location: lower extremity Affected thrombotic vein of extremity: femoral Chronicity: acute Laterality: right Qualified Code(s): I82.411 - Acute embolism and thrombosis of right femoral vein Is this a current diagnosis for this admission?: Yes Plan: Supportive care (4) Dehydration Is this a current diagnosis for this admission?: Yes Plan: Gentle hydration (5) Hyponatremia Is this a current diagnosis for this admission?: Yes Plan: Due to volume contraction (6) Metastatic colon cancer to liver Is this a current diagnosis for this admission?: Yes Plan: Continue current management - Time Time Spent with patient: 15-24 minutes Medications reviewed and adjusted accordingly: Yes Anticipated discharge: Hospice Within: within 72 hours - Inpatient Certification Based on my medical assessment, after consideration of the patient's comorbidities, presenting symptoms, or acuity I expect that the services needed warrant INPATIENT care.: Yes I certify that my determination is in accordance with my understanding of Medicare's requirements for reasonable and necessary INPATIENT services [42 CFR 412.3e].: Yes Medical Necessity: Need For IV Fluids, Need for IV Antibiotics
[2017-03-31] MEDS: HYDROMORPHONE HCL INJ/PF 2 MG/ML AMPULE IV PRN (21:14)
[2017-03-31] MEDS ORDERED: ATROPINE SULFATE 1% OPH SOLN 5 ML BOTTLE ONE (21:32)
[2017-04-01] MEDS: ATROPINE SULFATE 1% OPH SOLN 5 ML BOTTLE SL SCH ×3 (05:33→21:11)
--- NOTE | 2017-04-01 08:11 | PDOC PROGRESS REPORT ---
Subjective Progress Note for:: 04/01/17 Subjective:: Patient sleeping peacefully. states that he has been getting stronger each day. He is asking for food and drinks. He is eating very little. He has gotten up out of bed on his own on at least 1 occasion. He only complains of pain periodically and states that pain medication has been adequate. ROS unable to obtain otherwise, as patient is asleep. Reason For Visit: ABD PAIN,METASTATIC CA Physical Exam Vital Signs: Temp Pulse Resp BP Pulse Ox 97.7 F 107 H 14 106/59 L 96 03/31/17 19:26 03/31/17 19:26 03/31/17 19:26 03/31/17 19:26 03/31/17 19:26 Intake & Output 03/31/17 04/01/17 04/02/17 06:59 06:59 06:59 Intake Total 1307 300 Output Total 438 Balance 869 300 Weight 88 kg General appearance: PRESENT: no acute distress, thin Exam: Cachectic, 51 year old AA male. He does not respond to voice or touch, but has been given medication to sedate him. Respiratory exam: PRESENT: clear to auscultation gayathri, unlabored Cardiovascular exam: PRESENT: RRR. ABSENT: systolic murmur GI/Abdominal exam: PRESENT: normal bowel sounds, soft. ABSENT: tenderness Extremities exam: PRESENT: other - RLE with 3+ edema. LLE with 1+ edema. Neurological exam: ABSENT: awake Skin exam: PRESENT: normal color, warm Results Laboratory Results: 03/28/17 06:25 03/28/17 06:28 03/25/17 05:20 NT-Pro-B Natriuret Pep 224 H Impressions: Abdomen/Pelvis CT 03/24/17 18:55 IMPRESSION: Interval development of appendiceal dilatation at 1.2 cm. Suspected early appendicitis. Diffuse liver metastases unchanged. Splenic flexure mass unchanged. . Chest X-Ray 03/24/17 18:56 IMPRESSION: NO ACUTE RADIOGRAPHIC FINDING IN THE CHEST. Venous Doppler Study 03/25/17 00:00 IMPRESSION: Findings consistent with deep venous thrombosis in the right lower extremity extending from the level of the common femoral vein to the level of the popliteal vein. No evidence for deep venous thrombosis on the left. Other findings as noted above Assessment & Plan - Diagnosis (1) Metastatic colon cancer to liver Is this a current diagnosis for this admission?: Yes Plan: s/p FIRST cycle of chemotherapy. Although he has an incurable disease, with treatment, he still has the potential to live for months, perhaps more. Further recommendations for this based on future testing. (2) Appendicitis Qualifiers: Appendicitis type: unspecified Qualified Code(s): K37 - Unspecified appendicitis Plan: Patient denies significant pain from this. Unclear at this point if this is still an issue. Consider further scans for evaluation. Based on discussion with patient's , I will re-evaluate him today with CBC, CMP, UA and stool for occult blood. If no evidence of active bleeding and labs appear improved, consider further testing and active treatment. However, possibility of Home Hospice if evidence that patient could not tolerate any further active treatment for his cancer. (3) DVT (deep venous thrombosis) Qualifiers: DVT location: lower extremity Affected thrombotic vein of extremity: femoral Chronicity: acute Laterality: right Qualified Code(s): I82.411 - Acute embolism and thrombosis of right femoral vein Is this a current diagnosis for this admission?: Yes Plan: All anticoagulation has been on hold due to GI bleeding. Will re-evaluate this , if no evidence of bleeding. - Plan Summary Plan Summary: I discussed plan with in detail and she understands situation. All questions were answered to the best of my ability. I will re-evaluate and provide further recommendations.
[2017-04-01] MEDS ORDERED: CEFTRIAXONE 2 GM/D5W RTU 2 GM/50 ML RTUPB IV SCH (10:00)
[2017-04-01 10:03] LABS: HEMATOCRIT 31.8 % (37.9-51.0); HEMOGLOBIN 10.2 g/dL (13.5-17.0); MEAN CORPUSCULAR HEMOGLOBIN 25.9 pg (27.0-33.4); MEAN CORPUSCULAR HGB CONC 32.2 g/dL (32.0-36.0); MEAN CORPUSCULAR VOLUME 81 fl (80-97); PLATELET COUNT 183 10^3/uL (150-450); RED BLOOD COUNT 3.95 10^6/uL (4.35-5.55); RED CELL DISTRIBUTION WIDTH 15.9 % (11.5-14.0); WHITE BLOOD COUNT 4.4 10^3/uL (4.0-10.5)
[2017-04-01 10:21] LABS: ALANINE AMINOTRANSFERASE 83 U/L (21-72); ALBUMIN 2.7 g/dL (3.5-5.0); ALKALINE PHOSPHATASE 509 U/L (38-126); ASPARTATE AMINO TRANSFERASE 110 U/L (17-59); BILIRUBIN,DIRECT 1.8 mg/dL (0.0-0.4); BLOOD UREA NITROGEN 104 mg/dL (7-20); CALCIUM 9.4 mg/dL (8.4-10.2); GLUCOSE 97 mg/dL (75-110); POTASSIUM 5.2 mmol/L (3.6-5.0); TOTAL PROTEIN 5.2 g/dL (6.3-8.2)
[2017-04-01 10:31] LABS: ANION GAP 18 (5-19); CARBON DIOXIDE 15 mmol/L (22-30); CHLORIDE 112 mmol/L (98-107)
[2017-04-01 10:37] LABS: ABSOLUTE MONOCYTES # (MANUAL) 1.9 10^3/uL (0.1-1.4); ABSOLUTE NEUTROPHILS# (MANUAL) 1.5 10^3/uL (1.7-8.2); BAND NEUTROPHILS % (MANUAL) 1 % (3-5); BASOPHILS % (MANUAL) 0 % (0-2); EOSINOPHILS % (MANUAL) 1 % (0-6); LYMPHOCYTES % (MANUAL) 22 % (13-45); NUCLEATED RED BLOOD CELLS 6 /100 WBC (0); SEGMENTED NEUTROPHILS % (MAN) 32 % (42-78); TOTAL CELLS COUNTED 100
[2017-04-01 10:39] LABS: ANISOCYTOSIS SLIGHT; HYPOCHROMASIA SLIGHT; PLATELET COMMENT ADEQUATE; POLYCHROMASIA SLIGHT
[2017-04-01 10:40] LABS: MONOCYTES % (MANUAL) 44 % (3-13)
[2017-04-01] MEDS: HYDROMORPHONE HCL INJ/PF 2 MG/ML AMPULE IV PRN (14:03)
--- NOTE | 2017-04-01 14:06 | PDOC PROGRESS REPORT ---
Subjective Progress Note for:: 04/01/17 Subjective:: The patient does not wake up for me. According to the he was up talking with the oncologist just prior to my coming to the room. Reason For Visit: ABD PAIN,METASTATIC CA Physical Exam Vital Signs: Temp Pulse Resp BP Pulse Ox 98.0 F 103 H 14 88/52 L 91 L 04/01/17 07:26 04/01/17 07:26 03/31/17 19:26 04/01/17 07:26 04/01/17 07:26 Intake & Output 03/31/17 04/01/17 04/02/17 06:59 06:59 06:59 Intake Total 1307 300 Output Total 438 Balance 869 300 Weight 88 kg General appearance: PRESENT: no acute distress Eye exam: PRESENT: conjunctiva pink. ABSENT: scleral icterus Mouth exam: PRESENT: moist, tongue midline Neck exam: ABSENT: JVD Respiratory exam: PRESENT: clear to auscultation gayathri. ABSENT: rales, rhonchi, wheezes Cardiovascular exam: PRESENT: RRR. ABSENT: diastolic murmur, rubs, systolic murmur GI/Abdominal exam: PRESENT: mass - Patient has a palpable mass in the right upper quadrant approximately 3 inches in size associated with the liver. The left lobe of the liver also is firm and nodular., normal bowel sounds, soft. ABSENT: distended, guarding, organolmegaly, rebound, tenderness Extremities exam: PRESENT: pedal edema. ABSENT: calf tenderness, clubbing Neurological exam: PRESENT: other - Patient will arouse with painful stimuli but will not interact. Psychiatric exam: PRESENT: other - Unable to assess Skin exam: PRESENT: dry, intact, warm. ABSENT: cyanosis, rash Results Laboratory Results: 04/01/17 09:38 04/01/17 09:38 04/01/17 04/01/17 09:38 09:38 WBC 4.4 RBC 3.95 L Hgb 10.2 L Hct 31.8 L MCV 81 MCH 25.9 L MCHC 32.2 RDW 15.9 H Plt Count 183 Seg Neutrophils % Not Reportable Lymphocytes % Not Reportable Monocytes % Not Reportable Eosinophils % Not Reportable Basophils % Not Reportable Absolute Neutrophils Not Reportable Absolute Lymphocytes Not Reportable Absolute Monocytes Not Reportable Absolute Eosinophils Not Reportable Absolute Basophils Not Reportable Sodium 145.0 Potassium 5.2 H Chloride 112 H Carbon Dioxide 15 L Anion Gap 18 BUN 104 H Creatinine 4.12 H Est GFR ( Amer) 19 L Est GFR (Non-Af Amer) 16 L Glucose 97 Calcium 9.4 Total Bilirubin 2.0 H AST 110 H ALT 83 H Alkaline Phosphatase 509 H Total Protein 5.2 L Albumin 2.7 L 03/25/17 05:20 NT-Pro-B Natriuret Pep 224 H Impressions: Abdomen/Pelvis CT 03/24/17 18:55 IMPRESSION: Interval development of appendiceal dilatation at 1.2 cm. Suspected early appendicitis. Diffuse liver metastases unchanged. Splenic flexure mass unchanged. . Chest X-Ray 03/24/17 18:56 IMPRESSION: NO ACUTE RADIOGRAPHIC FINDING IN THE CHEST. Venous Doppler Study 03/25/17 00:00 IMPRESSION: Findings consistent with deep venous thrombosis in the right lower extremity extending from the level of the common femoral vein to the level of the popliteal vein. No evidence for deep venous thrombosis on the left. Other findings as noted above Assessment & Plan - Diagnosis (1) Metastatic colon cancer to liver Is this a current diagnosis for this admission?: Yes Plan: The oncologist has evaluated the patient and is considering further treatment given that he is more responsive now. Will defer to oncology's decisions in regards to this. (2) Appendicitis Qualifiers: Appendicitis type: unspecified Qualified Code(s): K37 - Unspecified appendicitis Is this a current diagnosis for this admission?: Yes Plan: Has been getting Rocephin. (3) Dehydration Is this a current diagnosis for this admission?: Yes Plan: Has been getting IV fluids. (4) Sepsis Is this a current diagnosis for this admission?: Yes Plan: Secondary to appendicitis. Continue with the Rocephin. (5) DVT (deep venous thrombosis) Qualifiers: DVT location: lower extremity Affected thrombotic vein of extremity: femoral Chronicity: acute Laterality: right Qualified Code(s): I82.411 - Acute embolism and thrombosis of right femoral vein Is this a current diagnosis for this admission?: Yes Plan: Anticoagulation is being held secondary to GI bleeding. We will continue to monitor closely. - Time Time Spent with patient: 25-34 minutes - Inpatient Certification Medical Necessity: Need for IV Antibiotics
[2017-04-01] MEDS ORDERED: NORMAL SALINE 1000 ML 1,000 ML IV PRN (14:45)
[2017-04-01] MEDS ORDERED: NORMAL SALINE 1000 ML 1,000 ML IV ONE (15:00)
--- NOTE | 2017-04-01 23:56 | Progress Note ---
Provider Note Provider Note: Palliative Care follow up visit 04/01/17 3:55 pm Follow up visit to offer support for and see if symptoms well controlled. Mr. Moran is in bed, not responding since he just had his pain meds. reports pain meds are controlling pain well. reports that doctors want her to decide about comfort care. She said she doesnt know why she is getting pushed to make decisons she has already made. She does not believe he is having any renal failure becuse he still makes urine. When I tried to explain about toxins, and kidney filtration she said she is tired of heraing all of this from "you people". She is very tired, has been at hospital since patient came in and is very upset that he is dying. She is angry that someone wrote DNR order without asking her , but when questioned, she said she would not want him to have CPR or be put on ventilator. We discussed his current condition and the fact that even if on comfort care only he might live a while longer. I told her she had options for taking him home with hospice to help with care, or having him transferred to hospice care center. At this paoint she became very upset with me and said she was staying with her request that when his organs start to fail, he is to be given medicaiton that will keep him comfortable and help him "ease on out" from the injection. AsI tried to explain comfort care eing only medicaitons to keep patient comfortable, but not to hasten , she was very upset with me. She is exhausted. Her friend at bedside with ehr tried to restate what I had talked about and she got very upset with her also. Mrs. Moran said she was told he could stay there as long as he needed to and they would not be thrown out on the street. I could see that my conversation of explaining options to her was only making her more anxious, so I stopped. talked with network planner about her expectations. Patient appears comfortable, no respiratory distress. He is asleep and did not change expression during my long visit. His right lower leg remains edematous and cool to touch. Will follow. DNR remians in palce and patient appears comfortable at present.
[2017-04-02] MEDS: ATROPINE SULFATE 1% OPH SOLN 5 ML BOTTLE SL SCH ×2 (05:11→15:44)
[2017-04-02] MEDS: HYDROMORPHONE HCL INJ/PF 2 MG/ML AMPULE IV PRN ×2 (05:14→17:45)
--- NOTE | 2017-04-02 08:13 | PDOC PROGRESS REPORT ---
Subjective Progress Note for:: 04/02/17 Subjective:: Patient sleeping peacefully. Does not arouse. at bedside. She now reports that she knows he is dying. She has no support system here and no transportation, so this is very difficult for her. She states that the pain medication is working. No recent BMs, 1 void last night. Reason For Visit: ABD PAIN,METASTATIC CA Physical Exam Vital Signs: Temp Pulse Resp BP Pulse Ox 98.1 F 104 H 8 L 98/53 L 96 04/01/17 20:17 04/01/17 20:17 04/01/17 20:17 04/01/17 20:17 04/01/17 20:17 Intake & Output 04/01/17 04/02/17 04/03/17 06:59 06:59 06:59 Intake Total 300 741 Balance 300 741 Weight 88 kg 87 kg General appearance: PRESENT: no acute distress Exam: Cachectic male lying comfortably in bed. Respiratory exam: PRESENT: unlabored Cardiovascular exam: PRESENT: RRR Extremities exam: PRESENT: other - LE edema, unchanged from yesterday. Neurological exam: ABSENT: alert, awake Skin exam: PRESENT: normal color, warm Results Laboratory Results: 04/01/17 09:38 04/01/17 09:38 04/01/17 04/01/17 09:38 09:38 WBC 4.4 RBC 3.95 L Hgb 10.2 L Hct 31.8 L MCV 81 MCH 25.9 L MCHC 32.2 RDW 15.9 H Plt Count 183 Seg Neutrophils % Not Reportable Lymphocytes % Not Reportable Monocytes % Not Reportable Eosinophils % Not Reportable Basophils % Not Reportable Absolute Neutrophils Not Reportable Absolute Lymphocytes Not Reportable Absolute Monocytes Not Reportable Absolute Eosinophils Not Reportable Absolute Basophils Not Reportable Sodium 145.0 Potassium 5.2 H Chloride 112 H Carbon Dioxide 15 L Anion Gap 18 BUN 104 H Creatinine 4.12 H Est GFR ( Amer) 19 L Est GFR (Non-Af Amer) 16 L Glucose 97 Calcium 9.4 Total Bilirubin 2.0 H AST 110 H ALT 83 H Alkaline Phosphatase 509 H Total Protein 5.2 L Albumin 2.7 L 03/25/17 05:20 NT-Pro-B Natriuret Pep 224 H Impressions: Abdomen/Pelvis CT 03/24/17 18:55 IMPRESSION: Interval development of appendiceal dilatation at 1.2 cm. Suspected early appendicitis. Diffuse liver metastases unchanged. Splenic flexure mass unchanged. . Chest X-Ray 03/24/17 18:56 IMPRESSION: NO ACUTE RADIOGRAPHIC FINDING IN THE CHEST. Venous Doppler Study 03/25/17 00:00 IMPRESSION: Findings consistent with deep venous thrombosis in the right lower extremity extending from the level of the common femoral vein to the level of the popliteal vein. No evidence for deep venous thrombosis on the left. Other findings as noted above Assessment & Plan - Diagnosis (1) Metastatic colon cancer to liver Is this a current diagnosis for this admission?: Yes (2) Appendicitis Qualifiers: Appendicitis type: unspecified Qualified Code(s): K37 - Unspecified appendicitis Is this a current diagnosis for this admission?: Yes (3) DVT (deep venous thrombosis) Qualifiers: DVT location: lower extremity Affected thrombotic vein of extremity: femoral Chronicity: acute Laterality: right Qualified Code(s): I82.411 - Acute embolism and thrombosis of right femoral vein Is this a current diagnosis for this admission?: Yes - Plan Summary Plan Summary: Agree with comfort only. I spent 15 minutes with . She is sad, but realistic. She has requested no further labs or IV fluids. She is very happy that he is at peace and is not suffering. She does not wish to move him to a new location. I will be available if needed.
[2017-04-02] MEDS: SCOPOLAMINE HYDROBROMIDE 1.5 MG PATCH.TD72 TD SCH (12:07)
[2017-04-02] MEDS: FENTANYL 25 MCG/HR PATCH.TD72 TD SCH (12:08)
--- NOTE | 2017-04-02 15:07 | PDOC PROGRESS REPORT ---
Subjective Progress Note for:: 04/02/17 Subjective:: Unresponsive Reason For Visit: ABD PAIN,METASTATIC CA Physical Exam Vital Signs: Temp Pulse Resp BP Pulse Ox 98.1 F 104 H 8 L 98/53 L 96 04/01/17 20:17 04/01/17 20:17 04/01/17 20:17 04/01/17 20:17 04/01/17 20:17 Intake & Output 04/01/17 04/02/17 04/03/17 06:59 06:59 06:59 Intake Total 300 741 Balance 300 741 Weight 88 kg 87 kg General appearance: PRESENT: no acute distress Eye exam: PRESENT: conjunctiva pink Neck exam: ABSENT: JVD Respiratory exam: PRESENT: rhonchi. ABSENT: rales, wheezes Cardiovascular exam: PRESENT: RRR, tachycardia. ABSENT: diastolic murmur, rubs , systolic murmur GI/Abdominal exam: PRESENT: mass - Palpable mass in the right liver. Left lobe of the liver is also palpable, normal bowel sounds, soft. ABSENT: distended, guarding, organolmegaly, rebound, tenderness Extremities exam: ABSENT: calf tenderness, clubbing, pedal edema Neurological exam: PRESENT: other - Unresponsive Skin exam: PRESENT: dry, intact, warm. ABSENT: cyanosis, rash Results Laboratory Results: 04/01/17 09:38 04/01/17 09:38 03/25/17 05:20 NT-Pro-B Natriuret Pep 224 H Impressions: Abdomen/Pelvis CT 03/24/17 18:55 IMPRESSION: Interval development of appendiceal dilatation at 1.2 cm. Suspected early appendicitis. Diffuse liver metastases unchanged. Splenic flexure mass unchanged. . Chest X-Ray 03/24/17 18:56 IMPRESSION: NO ACUTE RADIOGRAPHIC FINDING IN THE CHEST. Venous Doppler Study 03/25/17 00:00 IMPRESSION: Findings consistent with deep venous thrombosis in the right lower extremity extending from the level of the common femoral vein to the level of the popliteal vein. No evidence for deep venous thrombosis on the left. Other findings as noted above Assessment & Plan - Diagnosis (1) Metastatic colon cancer to liver Is this a current diagnosis for this admission?: Yes Plan: Comfort Care only. (2) Appendicitis Qualifiers: Appendicitis type: unspecified Qualified Code(s): K37 - Unspecified appendicitis Is this a current diagnosis for this admission?: Yes (3) Dehydration Is this a current diagnosis for this admission?: Yes (4) Sepsis Is this a current diagnosis for this admission?: Yes (5) DVT (deep venous thrombosis) Qualifiers: DVT location: lower extremity Affected thrombotic vein of extremity: femoral Chronicity: acute Laterality: right Qualified Code(s): I82.411 - Acute embolism and thrombosis of right femoral vein Is this a current diagnosis for this admission?: Yes - Time Time Spent with patient: 15-24 minutes - Plan Summary Plan Summary: Comfort Care only
[2017-04-03] MEDS: ATROPINE SULFATE 1% OPH SOLN 5 ML BOTTLE SL SCH ×3 (00:37→13:20)
[2017-04-03] MEDS: HYDROMORPHONE HCL INJ/PF 2 MG/ML AMPULE IV PRN (00:37)
--- NOTE | 2017-04-03 12:38 | PDOC PROGRESS REPORT ---
Subjective Progress Note for:: 04/03/17 Subjective:: The patient is awake today and complains of abdominal pain Reason For Visit: ABD PAIN,METASTATIC CA Physical Exam Vital Signs: Temp Pulse Resp BP Pulse Ox 97.4 F 94 10 L 104/60 99 04/02/17 20:00 04/02/17 20:00 04/02/17 20:00 04/02/17 20:00 04/02/17 20:00 Intake & Output 04/02/17 04/03/17 04/04/17 06:59 06:59 06:59 Intake Total 741 181 Balance 741 181 Weight 87 kg 85.3 kg General appearance: PRESENT: no acute distress Eye exam: PRESENT: conjunctiva pink. ABSENT: scleral icterus Mouth exam: PRESENT: dry mucosa Neck exam: ABSENT: JVD Respiratory exam: PRESENT: rhonchi. ABSENT: rales, wheezes GI/Abdominal exam: PRESENT: tenderness Results Laboratory Results: 04/01/17 09:38 04/01/17 09:38 03/25/17 05:20 NT-Pro-B Natriuret Pep 224 H Impressions: Abdomen/Pelvis CT 03/24/17 18:55 IMPRESSION: Interval development of appendiceal dilatation at 1.2 cm. Suspected early appendicitis. Diffuse liver metastases unchanged. Splenic flexure mass unchanged. . Chest X-Ray 03/24/17 18:56 IMPRESSION: NO ACUTE RADIOGRAPHIC FINDING IN THE CHEST. Venous Doppler Study 03/25/17 00:00 IMPRESSION: Findings consistent with deep venous thrombosis in the right lower extremity extending from the level of the common femoral vein to the level of the popliteal vein. No evidence for deep venous thrombosis on the left. Other findings as noted above Assessment & Plan - Diagnosis (1) Metastatic colon cancer to liver Is this a current diagnosis for this admission?: Yes Plan: Comfort Care only. Will start on a morphine drip. (2) Appendicitis Qualifiers: Appendicitis type: unspecified Qualified Code(s): K37 - Unspecified appendicitis Is this a current diagnosis for this admission?: Yes (3) Dehydration Is this a current diagnosis for this admission?: Yes (4) Sepsis Is this a current diagnosis for this admission?: Yes (5) DVT (deep venous thrombosis) Qualifiers: DVT location: lower extremity Affected thrombotic vein of extremity: femoral Chronicity: acute Laterality: right Qualified Code(s): I82.411 - Acute embolism and thrombosis of right femoral vein Is this a current diagnosis for this admission?: Yes - Time Time Spent with patient: 25-34 minutes - Inpatient Certification Medical Necessity: Need for Pain Control
[2017-04-03] MEDS: MORPHINE SULFATE 60 MG/60 ML RTUINJ IV PRN (12:46)
[2017-04-04] MEDS: ATROPINE SULFATE 1% OPH SOLN 5 ML BOTTLE SL SCH ×4 (02:45→22:07)
--- NOTE | 2017-04-04 14:50 | PDOC PROGRESS REPORT ---
Subjective Progress Note for:: 04/04/17 Subjective:: Patient is unresponsive. Reason For Visit: ABD PAIN,METASTATIC CA Physical Exam Vital Signs: Temp Pulse Resp BP Pulse Ox 98.0 F 117 H 8 L 106/56 L 93 04/04/17 08:02 04/04/17 08:02 04/04/17 13:00 04/04/17 08:02 04/04/17 08:02 Intake & Output 04/03/17 04/04/17 04/05/17 06:59 06:59 06:59 Intake Total 181 6 11 Balance 181 6 11 Weight 85.3 kg 82.5 kg General appearance: PRESENT: no acute distress Eye exam: PRESENT: conjunctiva pink. ABSENT: scleral icterus Ear exam: PRESENT: normal external ear exam Mouth exam: PRESENT: moist, tongue midline Neck exam: ABSENT: JVD Respiratory exam: PRESENT: rhonchi. ABSENT: rales, wheezes Cardiovascular exam: PRESENT: RRR. ABSENT: diastolic murmur, rubs, systolic murmur Results Laboratory Results: 04/01/17 09:38 04/01/17 09:38 03/25/17 05:20 NT-Pro-B Natriuret Pep 224 H Impressions: Abdomen/Pelvis CT 03/24/17 18:55 IMPRESSION: Interval development of appendiceal dilatation at 1.2 cm. Suspected early appendicitis. Diffuse liver metastases unchanged. Splenic flexure mass unchanged. . Chest X-Ray 03/24/17 18:56 IMPRESSION: NO ACUTE RADIOGRAPHIC FINDING IN THE CHEST. Venous Doppler Study 03/25/17 00:00 IMPRESSION: Findings consistent with deep venous thrombosis in the right lower extremity extending from the level of the common femoral vein to the level of the popliteal vein. No evidence for deep venous thrombosis on the left. Other findings as noted above Assessment & Plan - Diagnosis (1) Metastatic colon cancer to liver Is this a current diagnosis for this admission?: Yes Plan: Comfort Care only. Will continue on a morphine drip. (2) Appendicitis Qualifiers: Appendicitis type: unspecified Qualified Code(s): K37 - Unspecified appendicitis Is this a current diagnosis for this admission?: Yes (3) Dehydration Is this a current diagnosis for this admission?: Yes (4) Sepsis Is this a current diagnosis for this admission?: Yes (5) DVT (deep venous thrombosis) Qualifiers: DVT location: lower extremity Affected thrombotic vein of extremity: femoral Chronicity: acute Laterality: right Qualified Code(s): I82.411 - Acute embolism and thrombosis of right femoral vein Is this a current diagnosis for this admission?: Yes - Time Time Spent with patient: 15-24 minutes - Inpatient Certification Medical Necessity: Need for Pain Control
[2017-04-05] MEDS: ATROPINE SULFATE 1% OPH SOLN 5 ML BOTTLE SL SCH ×3 (06:05→21:01)
[2017-04-05 08:06] VITALS: BP 74/46
[2017-04-05] MEDS: FENTANYL 25 MCG/HR PATCH.TD72 TD SCH (10:47)
[2017-04-05] MEDS: SCOPOLAMINE HYDROBROMIDE 1.5 MG PATCH.TD72 TD SCH (10:47)
--- NOTE | 2017-04-05 13:12 | PDOC PROGRESS REPORT ---
Subjective Progress Note for:: 04/05/17 Subjective:: Patient is unresponsive. Reason For Visit: ABD PAIN,METASTATIC CA Physical Exam Vital Signs: Temp Pulse Resp BP Pulse Ox 100.0 F 110 H 12 74/46 L 93 04/05/17 07:52 04/05/17 07:52 04/05/17 11:00 04/05/17 07:52 04/05/17 09:00 Intake & Output 04/04/17 04/05/17 04/06/17 06:59 06:59 06:59 Intake Total 6 22 Balance 6 22 Weight 82.5 kg 82.9 kg Respiratory exam: PRESENT: rales, wheezes. ABSENT: rhonchi Cardiovascular exam: PRESENT: irregular rhythm, tachycardia. ABSENT: diastolic murmur, rubs, systolic murmur Neurological exam: PRESENT: other - Unresponsive Results Laboratory Results: 04/01/17 09:38 04/01/17 09:38 03/25/17 05:20 NT-Pro-B Natriuret Pep 224 H Impressions: Abdomen/Pelvis CT 03/24/17 18:55 IMPRESSION: Interval development of appendiceal dilatation at 1.2 cm. Suspected early appendicitis. Diffuse liver metastases unchanged. Splenic flexure mass unchanged. . Chest X-Ray 03/24/17 18:56 IMPRESSION: NO ACUTE RADIOGRAPHIC FINDING IN THE CHEST. Venous Doppler Study 03/25/17 00:00 IMPRESSION: Findings consistent with deep venous thrombosis in the right lower extremity extending from the level of the common femoral vein to the level of the popliteal vein. No evidence for deep venous thrombosis on the left. Other findings as noted above Assessment & Plan - Diagnosis (1) Metastatic colon cancer to liver Is this a current diagnosis for this admission?: Yes Plan: Comfort Care only. Will continue on a morphine drip. (2) Appendicitis Qualifiers: Appendicitis type: unspecified Qualified Code(s): K37 - Unspecified appendicitis Is this a current diagnosis for this admission?: Yes (3) Dehydration Is this a current diagnosis for this admission?: Yes (4) Sepsis Is this a current diagnosis for this admission?: Yes (5) DVT (deep venous thrombosis) Qualifiers: DVT location: lower extremity Affected thrombotic vein of extremity: femoral Chronicity: acute Laterality: right Qualified Code(s): I82.411 - Acute embolism and thrombosis of right femoral vein Is this a current diagnosis for this admission?: Yes - Time Time Spent with patient: Less than 15 minutes - Inpatient Certification Medical Necessity: Need Close Monitoring Due to Risk of Patient Decompensation, Need for Pain Control
[2017-04-06] MEDS: MORPHINE SULFATE 60 MG/60 ML RTUINJ IV PRN (00:11)
--- NOTE | 2017-04-07 13:28 | Death Summary ---
Summary Date : 04/06/17 Time of :: 00:43 Autopsy: No Resuscitation Status: Comfort Measures Only - Final Diagnosis (1) Metastatic colon cancer to liver Is this a current diagnosis for this admission?: Yes (2) Appendicitis Is this a current diagnosis for this admission?: Yes (3) Dehydration Is this a current diagnosis for this admission?: Yes (4) Sepsis Is this a current diagnosis for this admission?: Yes (5) DVT (deep venous thrombosis) Is this a current diagnosis for this admission?: Yes Hospital Course:: 51-year-old gentleman who has a history of metastatic colon cancer presented with sepsis. He was found to have appendicitis with right lower quadrant abdominal pain. Given his overall very poor status the decision was made to treat with antibiotics instead of surgery. The patient had minimal improvement and the family decided to make him comfort care only. He on April 06, 2017 at 00 43. Cause of is metastatic colon cancer. Contributing causes are #1. Sepsis, #2. Appendicitis. No autopsy was done.
== END 2017-04-06 02:35 | disposition left against medical advice (07) | DRG 872 ==
LOC: ER 17:42 → EH 23:34 → ICU 03-25 02:32 → 4S 03-26 12:30
PROVIDERS: ADMIT Pediatrics; ATTEND Pediatrics
DX: A41.59 Other Gram-negative sepsis (principal); C18.9 Malignant neoplasm of colon, unspecified; C78.7 Secondary malignant neoplasm of liver and intrahepatic bile duct; N17.9 Acute kidney failure, unspecified; I82.411 Acute embolism and thrombosis of right femoral vein; K92.2 Gastrointestinal hemorrhage, unspecified; E87.1 Hypo-osmolality and hyponatremia; E87.2 Acidosis; K37 Unspecified appendicitis; R65.20 Severe sepsis without septic shock; E86.0 Dehydration; Z51.5 Encounter for palliative care; Z66 Do not resuscitate; Z79.899 Other long term (current) drug therapy; Z95.9 Presence of cardiac and vascular implant and graft, unspecified
CPT/HCPCS: 31500; 36415; 71010; 74177; 80048; 80053; 82140; 82803; 83605; 83690; 83735; 83880; 85025; 85027; 87040; 87077; 87186; 93970; 96361; 96365; 96368; 96375; 99291; J0330; J0696; J1170; J1650; J2060; J2185; J2270; J2405; J2543; J2550; J3230; J3370; J3480; J3490; J7030; J7040